=== PATIENT | female | born 1950 | race Two or more races ===

== ENCOUNTER 2022-02-08 14:35 | Outpatient (REF) | payer OTHER, SELFPAY ==
--- NOTE | ~2022-02-08 | US_ITS ---
EXAMINATION: US VENOUS ULTRASOUND WITH DOPPLER LOWER EXTREMITY, BILATERAL CLINICAL INFORMATION: Bilateral leg edema. COMPARISON: None TECHNIQUE: Ultrasound of the deep veins is performed from the hip to the calf with compression sonography and color and pulse Doppler assessment. Spectral analysis with color-flow imaging is performed. FINDINGS: RIGHT: There is normal venous compression and respiratory variation and augmented flow. The visualized common femoral vein, superficial femoral vein, profunda femoral vein, popliteal vein, and the trifurcation region shows no evidence of deep venous thrombosis. No right popliteal cyst. Reniform right inguinal lymph node with thin cortex measuring up to 3.2 cm in long axis. LEFT: There is normal venous compression and respiratory variation and augmented flow. The visualized common femoral vein, superficial femoral vein, profunda femoral vein, popliteal vein, and the trifurcation region shows no evidence of deep venous thrombosis. There is no significant popliteal fossa cyst. Reniform left inguinal lymph node with thin cortex measuring 2.8 cm in long axis. If the patient's symptoms persist, followup ultrasound in 5 days 7 days might be of value to exclude proximal propagation from a non-visualized calf vein. US/US venous duplex LE IMPRESSION: 1. No evidence for deep venous thrombosis in the visualized veins of bilateral lower extremities.
[2022-02-08 16:05] LABS: MANUAL DIFF FLAG NO
[2022-02-08 16:50] LABS: Basophils Absolute Auto 0.1 X10*3/uL (0.0-0.2); Basophils Percent Auto 0.6 % (0-2); Eosinophils Absolute Auto 0.1 X10*3/uL (0.0-0.4); Eosinophils Percent Auto 1.6 % (0-4); Hematocrit 42.3 % (37.0-47.0); Hemoglobin 14.2 g/dl (12.0-16.0); Imm Gran Abs Auto 0.02 X10*3/uL (0.00-0.03); Imm Gran Pct Auto 0.2 % (0.0-0.4); Lymphocytes Absolute Auto 2.5 X10*3/uL (1.2-4.9); Lymphocytes Percent Auto 30.5 % (20-40); Mean Corpuscular HGB Conc 33.6 g/dl (31.0-35.0); Mean Corpuscular Volume 86.5 fL (80.0-98.0); Mean Platelet Volume 9.4 fL (9.4-12.3); Monocytes Absolute Auto 0.6 X10*3/uL (0.1-1.2); Monocytes Percent Auto 6.8 % (2-11); Neutrophils Absolute Auto 4.9 x10*3/uL (2.0-8.3); Neutrophils Percent Auto 60.3 % (45-73); Platelet Count 371 X10*3/uL (160-400); Red Blood Count 4.89 X10*6/uL (4.20-5.50); Red Cell Distribution Width 13.4 % (11.0-16.0); White Blood Count 8.1 X10*3/uL (4.8-10.8)
[2022-02-08 17:19] LABS: Alanine Aminotransferase 14 U/L (0-31); Albumin Level 4.3 g/dL (3.5-5.0); Alkaline Phosphatase 124 U/L (39-117); Anion Gap 15 (12-20); Aspartate Amino Transferase 19 U/L (5-31); B Type Natriuretic Peptide 11 pg/mL (<100); Bilirubin Total 0.3 mg/dL (0.0-1.0); Blood Urea Nitrogen 12 mg/dL (9-16); Calcium 9.7 mg/dL (8.4-10.2); Carbon Dioxide 28 mmol/L (22-29); Chloride 104 mmol/L (96-108); Estimated Glomerular Filt Rate > 60; Glucose Random 88 mg/dL (60-115); Potassium 3.9 mmol/L (3.3-5.1); Sodium 143 mmol/L (135-145); Total Protein 7.3 g/dL (6.5-8.0)
[2022-02-08 17:38] LABS: TSH reflex Free T4 0.26 uIU/mL (0.32-4.0)
[2022-02-08 18:27] LABS: Free T4 (Free Thyroxine) 1.25 ng/dL (0.71-1.85)
== END 2022-02-08 14:36 | disposition home or self-care (01) ==
LOC: HO.US 14:35
PROVIDERS: PCP Internal Medicine Geriatric Medicine; Visit Provider Internal Medicine Geriatric Medicine
DX: R60.0 Localized edema (principal); E03.9 Hypothyroidism, unspecified; E11.9 Type 2 diabetes mellitus without complications; I10 Essential (primary) hypertension; Z72.0 Tobacco use
CPT/HCPCS: 36415; 80053; 83880; 84439; 84443; 85025; 93970

== ENCOUNTER 2022-03-08 12:07 | Outpatient (REF) | payer OTHER, SELFPAY ==
--- NOTE | ~2022-03-08 | XR_ITS ---
EXAMINATION: XR KNEE, RIGHT CLINICAL INFORMATION: Right knee pain COMPARISON: 08/03/2016 TECHNIQUE: Four views of the right knee. FINDINGS: Medial compartment narrowing and marginal osteophytes have slightly progressed. Mild patellofemoral and lateral compartment osteoarthritis. No joint effusion. Prominent patellar enthesopathy. XR/XR knee RT 4V IMPRESSION: Moderate medial and mild patellofemoral/lateral compartment osteoarthritis which has slightly progressed since 2017. Prominent patellar enthesopathy.
== END 2022-03-08 12:08 | disposition home or self-care (01) ==
LOC: HO.XRAY 12:07
PROVIDERS: Absent Provider Internal Medicine Geriatric Medicine; PCP Internal Medicine Geriatric Medicine; Visit Provider Internal Medicine
DX: M17.11 Unilateral primary osteoarthritis, right knee (principal)
CPT/HCPCS: 73564

== ENCOUNTER 2022-03-15 09:05 | Outpatient (REF) | payer OTHER, SELFPAY ==
--- NOTE | ~2022-03-15 | XR_ITS ---
EXAMINATION: XR KNEE AP STANDING CLINICAL INFORMATION: Pain COMPARISON: Right knee radiographs 03/08/2022 TECHNIQUE: AP bilateral standing view of the knees was obtained. FINDINGS: No definite acute fracture appreciated however limited single view limits evaluation. Moderate to advanced degenerative changes of the right knee involving the medial compartment where there is near complete loss of joint space and degenerative spurring. Moderate degenerative changes of the left knee with loss of joint space. XR/XR knee standing BI IMPRESSION: Moderate to advanced degenerative changes of the right knee involving the medial compartment where there is near complete loss of joint space and degenerative spurring. Moderate degenerative changes of the left knee with loss of joint space.
== END 2022-03-15 09:06 | disposition home or self-care (01) ==
LOC: HO.XRAY 09:05
PROVIDERS: Visit Provider Orthopaedic Surgery
DX: M25.561 Pain in right knee (principal)
CPT/HCPCS: 73565

== ENCOUNTER 2022-03-15 14:19 | Outpatient (REF) | payer OTHER, SELFPAY ==
[2022-03-15 15:59] LABS: Estimated Average Glucose 137 mg/dL; Hemoglobin A1c % 6.4 %
== END 2022-03-15 14:20 | disposition home or self-care (01) ==
LOC: HO.LAB 14:19
PROVIDERS: PCP Internal Medicine Geriatric Medicine; Visit Provider Orthopaedic Surgery
DX: Z01.812 Encounter for preprocedural laboratory examination (principal); M17.11 Unilateral primary osteoarthritis, right knee; E11.9 Type 2 diabetes mellitus without complications
CPT/HCPCS: 36415; 83036; 99212

== ENCOUNTER 2022-04-01 12:15 | Outpatient (REF) | payer OTHER, SELFPAY ==
[2022-04-01 12:28] LABS: MANUAL DIFF FLAG NO
[2022-04-01 12:51] LABS: Basophils Absolute Auto 0.1 X10*3/uL (0.0-0.2); Basophils Percent Auto 0.8 % (0-2); Eosinophils Absolute Auto 0.1 X10*3/uL (0.0-0.4); Eosinophils Percent Auto 1.3 % (0-4); Hematocrit 41.6 % (37.0-47.0); Hemoglobin 13.9 g/dl (12.0-16.0); Imm Gran Abs Auto 0.02 X10*3/uL (0.00-0.03); Imm Gran Pct Auto 0.3 % (0.0-0.4); Lymphocytes Absolute Auto 2.3 X10*3/uL (1.2-4.9); Lymphocytes Percent Auto 28.9 % (20-40); Mean Corpuscular HGB Conc 33.4 g/dl (31.0-35.0); Mean Corpuscular Hemoglobin 28.7 pg (27.0-33.0); Mean Platelet Volume 9.7 fL (9.4-12.3); Monocytes Absolute Auto 0.6 X10*3/uL (0.1-1.2); Monocytes Percent Auto 7.6 % (2-11); Neutrophils Absolute Auto 4.8 x10*3/uL (2.0-8.3); Neutrophils Percent Auto 61.1 % (45-73); Platelet Count 332 X10*3/uL (160-400); Red Blood Count 4.84 X10*6/uL (4.20-5.50); Red Cell Distribution Width 13.5 % (11.0-16.0); White Blood Count 7.9 X10*3/uL (4.8-10.8)
[2022-04-01 13:39] LABS: Erythrocyte Sedimentation Rate 18 MM/HR (0-20)
[2022-04-01 13:43] LABS: Alanine Aminotransferase 13 U/L (0-31); Albumin Level 4.2 g/dL (3.5-5.0); Alkaline Phosphatase 113 U/L (39-117); Anion Gap 18 (12-20); Aspartate Amino Transferase 19 U/L (5-31); Bilirubin Total 0.2 mg/dL (0.0-1.0); Blood Urea Nitrogen 14 mg/dL (9-16); C Reactive Protein 0.54 mg/dL (< or = 0.50); Calcium 9.4 mg/dL (8.4-10.2); Carbon Dioxide 23 mmol/L (22-29); Chloride 105 mmol/L (96-108); Estimated Glomerular Filt Rate > 60; Glucose Random 86 mg/dL (60-115); Potassium 4.5 mmol/L (3.3-5.1); Sodium 141 mmol/L (135-145); Total Protein 7.3 g/dL (6.5-8.0)
[2022-04-01 13:52] LABS: TSH reflex Free T4 1.33 uIU/mL (0.32-4.0)
== END 2022-04-01 12:16 | disposition home or self-care (01) ==
LOC: HO.LAB 12:15
PROVIDERS: Absent Provider Internal Medicine Geriatric Medicine; PCP Internal Medicine Geriatric Medicine; Visit Provider Family Medicine
DX: R51.9 Headache, unspecified (principal)
CPT/HCPCS: 36415; 80053; 84443; 85025; 85652; 86140

== ENCOUNTER 2022-05-26 06:11 | Inpatient (IN) | payer OTHER, SELFPAY ==
--- NOTE | 2022-04-28 13:16 | ECG_ITS ---
Test Reason : preop Blood Pressure : / mmHG Vent. Rate : 083 BPM Atrial Rate : 083 BPM P-R Int : 176 ms QRS Dur : 066 ms QT Int : 384 ms P-R-T Axes : 067 008 024 degrees QTc Int : 451 ms Normal sinus rhythm Nonspecific ST abnormality Lateral leads Abnormal ECG No previous ECGs available Referred By: Kemal Jason Electronically Signed By:KAREN MORROW MD
[2022-04-28 13:19] LABS: MANUAL DIFF FLAG NO
[2022-04-28 14:08] LABS: Basophils Percent Auto 0.4 % (0-2); Eosinophils Absolute Auto 0.2 X10*3/uL (0.0-0.4); Eosinophils Percent Auto 2.2 % (0-4); Hematocrit 41.3 % (37.0-47.0); Hemoglobin 14.1 g/dl (12.0-16.0); Imm Gran Abs Auto 0.03 X10*3/uL (0.00-0.03); Imm Gran Pct Auto 0.4 % (0.0-0.4); Lymphocytes Absolute Auto 2.2 X10*3/uL (1.2-4.9); Lymphocytes Percent Auto 32.7 % (20-40); Mean Corpuscular HGB Conc 34.1 g/dl (31.0-35.0); Mean Corpuscular Hemoglobin 29.2 pg (27.0-33.0); Mean Corpuscular Volume 85.5 fL (80.0-98.0); Mean Platelet Volume 9.4 fL (9.4-12.3); Monocytes Absolute Auto 0.4 X10*3/uL (0.1-1.2); Monocytes Percent Auto 6.1 % (2-11); Neutrophils Percent Auto 58.2 % (45-73); Platelet Count 403 X10*3/uL (160-400); Red Blood Count 4.83 X10*6/uL (4.20-5.50); Red Cell Distribution Width 13.6 % (11.0-16.0); White Blood Count 6.9 X10*3/uL (4.8-10.8)
[2022-04-28 14:29] LABS: Anion Gap 13 (12-20); Blood Urea Nitrogen 10 mg/dL (9-16); Calcium 9.2 mg/dL (8.4-10.2); Carbon Dioxide 29 mmol/L (22-29); Chloride 106 mmol/L (96-108); Estimated Glomerular Filt Rate > 60; Glucose Random 217 mg/dL (60-115); Potassium 3.8 mmol/L (3.3-5.1); Sodium 144 mmol/L (135-145)
[2022-05-10 11:59] VITALS: BP 155/67; PULSE 89; RESP 20; O2SAT 96; BMI 37.0
--- NOTE | 2022-05-10 12:21 | P.CONAN_ITS ---
Documented by User: Carolina Zavaleta NP 05/10/22 12:26 HPI - Anesthesia Eval Consult details Narrative: 71yo F for Right Knee Replacement Total PCP cleared [facility] Active Problems Active Problems: All Active Problems (Updated 05/10/22 @ 11:23 by Angelic Hanson RN) Osteoarthritis of right knee (Acute) Diabetes mellitus (Acute) Past Medical History Medical History Arthritis of knee, right Asthma Diabetes History of CVA (cerebrovascular accident) without residual deficits Hypertension Hypothyroidism LIANA (obstructive sleep apnea) Family History Family history of problems with anesthesia: No Surgical History Surgical History History of cholecystectomy Hx of hysterectomy History of Problems with Anesthesia: No Social History Social History (Updated 03/15/22 @ 13:07 by Paulina Lopez CMA) Are you a primary patient care technician to a significant other at home: No 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 If so, by whom?: No Are you DNR?: No Advance Directives: No Advance Directives Information Provided: Yes (Given to patient with PATs) Advance Directives on File: No Recently lost weight without trying: No Eating poorly because of decreased appetite: No Nutrition Risks: No Nutritional Risk Patient : No : No Narrative Narrative: No recent illness No CP/SOB within limits of pain Meds Allergies Allergy/AdvReac Type Severity Reaction Status Date / Time aspirin AdvReac Anxiety Verified 05/26/22 06:38 codeine AdvReac Anxiety Verified 05/26/22 06:38 bactrim Allergy Blister Uncoded 05/10/22 11:23 Home Medications Medication Instructions Recorded Confirmed Last Taken Type celecoxib 200 mg capsule 200 mg PO BID 03/15/22 05/07/22 05/26/22 05:25 History duloxetine 30 mg capsule,delayed 30 mg PO DAILY 03/15/22 05/07/22 05/26/22 05:25 History release glipizide 5 mg tablet 5 mg PO BID 03/15/22 05/07/22 05/26/22 05:25 History oxybutynin chloride 5 mg 5 mg PO DAILY 03/15/22 05/07/22 05/26/22 05:25 History tablet,extended release 24 hr albuterol sulfate 90 mcg/actuation 2 puff inhalation Q4-6H PRN 04/28/22 05/07/22 Unknown History aerosol inhaler (Ventolin HFA) Wheezing fluticasone propionate 50 1 spray intranasal DAILY 04/28/22 05/07/22 Unknown History mcg/actuation nasal spray,suspension levothyroxine 137 mcg tablet 137 mcg PO DAILY 04/28/22 05/07/22 05/26/22 05:25 History pantoprazole 40 mg tablet,delayed 40 mg PO DAILY 04/28/22 05/07/22 05/26/22 05:25 History release zolpidem 12.5 mg tablet,extended 12.5 mg PO BEDTIME PRN Sleep 04/28/22 05/07/22 Unknown History release,multiphase amitriptyline 10 mg tablet 1 tab PO BEDTIME 05/07/22 05/07/22 Unknown History atorvastatin 20 mg tablet 1 tab PO BEDTIME 05/07/22 05/07/22 Unknown History buspirone 5 mg tablet 1 tab PO BID 05/07/22 05/07/22 05/26/22 05:25 History sumatriptan succinate 25 mg tablet 1 tab PO QD-BID migraine 05/07/22 05/07/22 Unknown History amlodipine 10 mg tablet 1 tab PO DAILY 05/10/22 05/10/22 05/26/22 05:25 History aspirin 81 mg tablet 81 mg PO DAILY 05/26/22 05/26/22 05/12/22 History Exam Exam Date and Time: May 10, 2022 122 Height,Weight and Vital Signs: Height 5 ft 1 in Weight 88.904 kg Last Vital Signs Pulse 89 05/10/22 11:59 Resp 20 05/10/22 11:59 BP 155/67 H 05/10/22 11:59 Pulse Ox 96 05/10/22 11:59 O2 Del Method 05/10/22 11:59 Pertinent Lab Results Pertinent Lab Results: Laboratory Tests 04/28/22 04/28/22 13:18 13:18 WBC 6.9 RBC 4.83 Hgb 14.1 Hct 41.3 MCV 85.5 MCH 29.2 MCHC 34.1 RDW 13.6 Plt Count 403 H MPV 9.4 Immature Gran % (Auto) 0.4 Neut % (Auto) 58.2 Lymph % (Auto) 32.7 [place] % (Auto) 6.1 Eos % (Auto) 2.2 Baso % (Auto) 0.4 Lymph # (Auto) 2.2 [place] # (Auto) 0.4 Eos # (Auto) 0.2 Baso # (Auto) 0.0 Abs Immat Gran (auto) 0.03 Absolute Neuts (auto) 4.0 Absolute Nucleated RBC 0.000 Nucleated RBC % (auto) 0.0 Sodium 144 Potassium 3.8 Chloride 106 Carbon Dioxide 29 Anion Gap 13 BUN 10 Creatinine 0.70 Estim Creat Clear Calc TNP Estimated GFR > 60 Random Glucose 217 H Calcium 9.2 Laboratory Tests 03/15/22 14:39 Hemoglobin A1c % 6.4 Narrative Narrative: EKG 04/2022 Vent. Rate : 083 BPM ? ? Atrial Rate : 083 BPM ?? P-R Int : 176 ms? QRS Dur : 066 ms ? ? QT Int : 384 ms ? ? ? P-R-T Axes : 067 008 024 degrees ?? QTc Int : 451 ms ? Normal sinus rhythm Nonspecific ST abnormality Lateral leads Abnormal ECG ? No previous ECGs available Airway Mallampati Class: II TM Dist: >3cm Neck ROM: Full Heart: RRR Lungs: CTAB Assessment and Plan Assessment Anesthesia Assessment: Anesthesia Plan Discussed, Smoking Cess. Discussed and PAT Visit Final Anesthetic Review Family History of Problems with Anesthesia: No History of Problems with Anesthesia: No Documented by User: Lucas Mora MD 05/26/22 16:42 HPI - Anesthesia Eval Consult details Narrative: 71yo F for Right Knee Replacement Total loss of balance since the stroke PCP cleared [facility] Past Medical History Medical History Arthritis of knee, right Asthma Diabetes History of CVA (cerebrovascular accident) without residual deficits Hypertension Hypothyroidism LIANA (obstructive sleep apnea) Surgical History Surgical History History of cholecystectomy Hx of hysterectomy Social History Social History (Updated 03/15/22 @ 13:07 by Paulina Lopez CMA) Are you a primary patient care technician to a significant other at home: No 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 If so, by whom?: No Are you DNR?: No Advance Directives: No Advance Directives Information Provided: Yes (Given to patient with PATs) Advance Directives on File: No Recently lost weight without trying: No Eating poorly because of decreased appetite: No Nutrition Risks: No Nutritional Risk Patient : No : No Meds Allergies Allergy/AdvReac Type Severity Reaction Status Date / Time aspirin AdvReac Anxiety Verified 05/26/22 06:38 codeine AdvReac Anxiety Verified 05/26/22 06:38 bactrim Allergy Blister Uncoded 05/10/22 11:23 Home Medications Medication Instructions Recorded Confirmed Last Taken Type celecoxib 200 mg capsule 200 mg PO BID 03/15/22 05/07/22 05/26/22 05:25 History duloxetine 30 mg capsule,delayed 30 mg PO DAILY 03/15/22 05/07/22 05/26/22 05:25 History release glipizide 5 mg tablet 5 mg PO BID 03/15/22 05/07/22 05/26/22 05:25 History oxybutynin chloride 5 mg 5 mg PO DAILY 03/15/22 05/07/22 05/26/22 05:25 History tablet,extended release 24 hr albuterol sulfate 90 mcg/actuation 2 puff inhalation Q4-6H PRN 04/28/22 05/07/22 Unknown History aerosol inhaler (Ventolin HFA) Wheezing fluticasone propionate 50 1 spray intranasal DAILY 04/28/22 05/07/22 Unknown History mcg/actuation nasal spray,suspension levothyroxine 137 mcg tablet 137 mcg PO DAILY 04/28/22 05/07/22 05/26/22 05:25 History pantoprazole 40 mg tablet,delayed 40 mg PO DAILY 04/28/22 05/07/22 05/26/22 05:25 History release zolpidem 12.5 mg tablet,extended 12.5 mg PO BEDTIME PRN Sleep 04/28/22 05/07/22 Unknown History release,multiphase amitriptyline 10 mg tablet 1 tab PO BEDTIME 05/07/22 05/07/22 Unknown History atorvastatin 20 mg tablet 1 tab PO BEDTIME 05/07/22 05/07/22 Unknown History buspirone 5 mg tablet 1 tab PO BID 05/07/22 05/07/22 05/26/22 05:25 History sumatriptan succinate 25 mg tablet 1 tab PO QD-BID migraine 05/07/22 05/07/22 Unknown History amlodipine 10 mg tablet 1 tab PO DAILY 05/10/22 05/10/22 05/26/22 05:25 History aspirin 81 mg tablet 81 mg PO DAILY 05/26/22 05/26/22 05/12/22 History Exam Airway Loose/Missing/Broken Teeth: Yes Assessment and Plan Assessment Anesthesia Assessment: Chart Reviewed Final Anesthetic Review NPO: Yes ASA Class: III Final Preanesthetic Review: Meds/Allgs Chart Reviewed, Consent Obtained/Reviewed and Anes Risks/Benef Reviewed Patient Risk: High Procedure Risk: Intermediate Anesthetic Plan Anesthetic Plan: Regional Block Disposition: Standard PACU and Inp. Admit - Standard Bed
[2022-05-10 15:06] LABS: MRSA Nasal PCR NEGATIVE (Negative); SA Nasal PCR POSITIVE (Negative)
[2022-05-26] VITALS (15 sets, daily range): BP systolic 108–196; BP diastolic 48–82; PULSE 63–92; RESP 15–18; TEMP 36.4–37.1; O2SAT 93–99
--- NOTE | ~2022-05-26 | XR_ITS ---
EXAMINATION: XR KNEE, RIGHT CLINICAL INFORMATION: Status post right total knee arthroplasty. COMPARISON: None TECHNIQUE: Four views of the right knee. FINDINGS: The patient is status post right knee arthroplasty showing good anatomic alignment and no evidence for hardware malfunction. Mild intra-articular air is noted. Multiple surgical clips overlie the anterior soft tissues. XR/XR knee RT 2V IMPRESSION: Postsurgical changes. No hardware abnormality.
[2022-05-26 06:45] LABS: COVID-19 Test Negative (Negative); IDNOW Serial# BCCEAD1C
[2022-05-26 06:47] LABS: Glucose, Whole Blood 138 mg/dL (60-115)
[2022-05-26 06:54] LABS: Hematocrit 38.6 % (37.0-47.0); Hemoglobin 12.9 g/dl (12.0-16.0)
[2022-05-26] MEDS: Lactated Ringers 1,000 ML 100 ML IVCONT ×2 (07:06→12:15)
--- NOTE | 2022-05-26 07:56 | MHC.SHP ---
Pre-Procedural Eval Section A Date of Service: 05/26/22 The patient is an INPATIENT: No Changes since office visit: Yes Patient answered all questions; No Cold of Flu in the past 2 weeks, No New Medical Problems and No Changes in Medication The History & Physical has been completed within 30 days and I have reviewed it.: Yes Section B Chief Complaint: RT TKA Allergies: Allergies Allergy/AdvReac Type Severity Reaction Status Date / Time aspirin AdvReac Anxiety Verified 05/26/22 06:38 codeine AdvReac Anxiety Verified 05/26/22 06:38 bactrim Allergy Blister Uncoded 05/10/22 11:23 Plan I have reviewed the history and physical and performed a pertinent physical examination on my patient. No changes have occurred unless specified.
[2022-05-26] MEDS: ceFAZolin Sodium/Dextrose,Iso 2 GM/50 ML PIGGYBACK IV ×2 (08:00→14:46)
--- NOTE | 2022-05-26 09:18 | P.BOP_ITS ---
Brief Operative Note Date of Service: 05/26/22 Pre-op diagnosis: Right knee OA Post-op diagnosis: same Procedure: Right TKA Implants: [place] Triathlon press fit posterior stabilized 07/22/10 Surgeon: Kemal Jason MD Anesthesia: regional and spinal Was an Immigration Investigator used for this Procedure?: Yes Immigration Investigator: Grace Machado Estimated blood loss (mL): 150 IV fluids (mL): 1,000 Pathology: other Condition: stable Disposition: PACU
--- NOTE | 2022-05-26 09:21 | P.OP_ITS ---
Operative Note Operative Note Date of Service: 05/26/22 Narrative: Date of Service: 05/26/22 Pre-op diagnosis: Right knee OA Post-op diagnosis: same Procedure: Right TKA Implants: [place] Triathlon press fit posterior stabilized 07/22/10 Surgeon: Kemal Jason MD Anesthesia: regional and spinal Was an Agent Licensing Clerk used for this Procedure?: Yes Agent Licensing Clerk: Grace Machado Estimated blood loss (mL): 150 IV fluids (mL): 1,000 Pathology: other Condition: stable Disposition: PACU Procedure in detail: The patient was brought to the operating room and prepped and draped in standard sterile fashion. A time-out was called to identify proper site proper procedure proper surgeon and IV antibiotics were administered. 1 g of IV tranexamic acid was administered. I began by making a midline incision to the retinaculum and performed a medial parapatellar arthrotomy. The patella was translated laterally and the knee was flexed up. The medial compartment was eburnated. I performed a small medial peel and resected the infrapatellar fat pad. [place]'s line was then used to drill my intramedullary femoral guide and my distal femur cut of 10mm was made in 5 degrees of valgus while protecting the soft tissues. I then measured a # 2 femur and placed my cutting guide and made my anterior posterior and chamfer cuts in # deg ER protecting the soft tissues at all times. I then made my box but removing the PCL. Once I was satisfied with my cuts I turned my attention to the tibia. I removed the meniscus medially and laterally and , using an external cutting guide, in line with the tibial crest and the third ray, I made my distal tibial cut in 0 deg slope of while protecting the posterior soft tissues at all times. An extension block was used to confirm appropriate amount of bony resection. I then sized a #2 tibia and once I was satisfied that there was complete tibial coverage I placed my trial and with the trial femur in place took the knee through range of motion. I was satisfied with the extension and flexion as well as the stability at 0, 30 and 90 degrees. I then turned my attention to the patella where I removed 1 cm from the undersurface of the patella and then trialed a 29a patellar button. Again the knee was taken through range of motion I was satisfied with the tracking. I then returned to the femur and drilled my femoral lug holes and prepared the tibia. A femoral bone plug was placed and the knee was irrigated copiously. I then press fit the patella, tibia and femur in standard fashion. I trialed different inserts until I selected a #11mm insert. The final insert was placed and a 3 minutes iodine soak with local TXA was performed. The knee was then closed with a running Quill suture, a 3 0 Vicryl and jayant on the skin. Patient was then placed in sterile dressing and brought to recovery room in stable condition there were no known complications.
[2022-05-26] MEDS: Acetaminophen 1,000 MG/100 ML PIGGYBACK 400 MG IV (12:16)
[2022-05-26] MEDS: HYDROmorphone HCl 0.5 MG/0.5 ML SYRINGE 0.25 MG IVPUSH ×3 (12:56→21:18)
--- NOTE | 2022-05-26 14:33 | PC.NURSE ---
voided on bed lamar 250ml. pale yellow slight odor. no longer has pain. 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
[2022-05-26] MEDS: oxyCODONE HCl Immed Release 5 MG TABLET PO ×2 (15:28→19:39)
[2022-05-26 15:55] LABS: Glucose, Whole Blood 154 mg/dL (60-115)
[2022-05-26] MEDS: SUMAtriptan succinate 25 MG TABLET PO (16:38)
[2022-05-26] MEDS: Losartan Potassium 50 MG TABLET PO (18:38)
[2022-05-26] MEDS: Atorvastatin Calcium 20 MG TABLET PO (19:39)
[2022-05-26] MEDS: glipiZIDE 5 MG TABLET PO (19:39)
[2022-05-26] MEDS: Acetaminophen 325 MG TABLET 650 MG PO (19:39)
[2022-05-26] MEDS: busPIRone HCl 5 MG TABLET PO (19:40)
[2022-05-26] MEDS: oxyCODONE HCl ER 10 MG TAB.ER.12H PO (19:40)
[2022-05-26] MEDS: Amitriptyline HCl 10 MG TABLET PO (19:40)
[2022-05-26] MEDS: Docusate Sodium 100 MG CAPSULE PO (19:40)
[2022-05-26] MEDS: Celecoxib 200 MG CAPSULE PO (19:40)
[2022-05-26] MEDS: Zolpidem Tartrate 5 MG TABLET PO (21:23)
[2022-05-26] MEDS: 0.9 % Sodium Chloride Flush 3 ML SYRINGE IVFLUSH (23:21)
[2022-05-27 04:00] VITALS: BP 146/63; PULSE 85; RESP 18; TEMP 36.8; O2SAT 92
[2022-05-27] MEDS: Levothyroxine Sodium 25 MCG TABLET PO (05:45)
[2022-05-27] MEDS: Omeprazole 20 MG CAPSULE.DR PO (05:45)
[2022-05-27] MEDS: Levothyroxine Sodium 112 MCG TABLET PO (05:45)
[2022-05-27 05:46] LABS: MANUAL DIFF FLAG NO
[2022-05-27] MEDS: Acetaminophen 325 MG TABLET 650 MG PO ×2 (05:46→20:48)
[2022-05-27] MEDS: oxyCODONE HCl Immed Release 5 MG TABLET PO ×2 (05:46→10:02)
[2022-05-27 05:57] LABS: Basophils Percent Auto 0.3 % (0-2); Eosinophils Percent Auto 0.2 % (0-4); Hematocrit 36.5 % (37.0-47.0); Hemoglobin 12.4 g/dl (12.0-16.0); Imm Gran Abs Auto 0.04 X10*3/uL (0.00-0.03); Imm Gran Pct Auto 0.4 % (0.0-0.4); Lymphocytes Absolute Auto 1.4 X10*3/uL (1.2-4.9); Lymphocytes Percent Auto 14.1 % (20-40); Mean Corpuscular Hemoglobin 28.6 pg (27.0-33.0); Mean Corpuscular Volume 84.1 fL (80.0-98.0); Mean Platelet Volume 9.5 fL (9.4-12.3); Monocytes Absolute Auto 0.8 X10*3/uL (0.1-1.2); Monocytes Percent Auto 8.6 % (2-11); Neutrophils Absolute Auto 7.5 x10*3/uL (2.0-8.3); Neutrophils Percent Auto 76.4 % (45-73); Platelet Count 359 X10*3/uL (160-400); Red Blood Count 4.34 X10*6/uL (4.20-5.50); Red Cell Distribution Width 13.2 % (11.0-16.0); White Blood Count 9.8 X10*3/uL (4.8-10.8)
[2022-05-27 06:07] LABS: Anion Gap 12 (12-20); Blood Urea Nitrogen 11 mg/dL (9-16); Calcium 8.3 mg/dL (8.4-10.2); Carbon Dioxide 27 mmol/L (22-29); Chloride 105 mmol/L (96-108); Creatinine Clr Calc Pharmacy 67.2; Estimated Glomerular Filt Rate > 60; Glucose Fasting 154 mg/dL (60-99); Potassium 3.8 mmol/L (3.3-5.1); Sodium 140 mmol/L (135-145)
--- NOTE | 2022-05-27 06:35 | PC.NURSE ---
pt did not void overnight, got pt up to bedside commode around 0545 and pt still unable to void, bladder scanned pt at 0600 for 430 ml. Straight cath'd at 0615 for 400 ml.
[2022-05-27 07:43] VITALS: BP 144/64; PULSE 81; RESP 16; TEMP 37.3; O2SAT 94
[2022-05-27] MEDS: DULoxetine HCl 30 MG CAPSULE.DR PO (08:09)
[2022-05-27] MEDS: amLODIPine Besylate 10 MG TABLET PO (08:09)
[2022-05-27] MEDS: oxyCODONE HCl ER 10 MG TAB.ER.12H PO ×2 (08:09→20:48)
[2022-05-27] MEDS: Celecoxib 200 MG CAPSULE PO ×2 (08:09→20:48)
[2022-05-27] MEDS: busPIRone HCl 5 MG TABLET PO ×2 (08:09→20:48)
[2022-05-27] MEDS: glipiZIDE 5 MG TABLET PO (08:09)
[2022-05-27] MEDS: Docusate Sodium 100 MG CAPSULE PO ×2 (08:09→20:49)
[2022-05-27] MEDS: Losartan Potassium 50 MG TABLET PO (08:09)
[2022-05-27] MEDS: SUMAtriptan succinate 25 MG TABLET PO (08:10)
[2022-05-27] MEDS: 0.9 % Sodium Chloride Flush 3 ML SYRINGE IVFLUSH ×3 (08:13→20:49)
[2022-05-27] MEDS: HYDROmorphone HCl 0.5 MG/0.5 ML SYRINGE 0.25 MG IVPUSH ×3 (08:48→23:46)
[2022-05-27] MEDS: Enoxaparin Sodium 40 MG/0.4 ML SYRINGE SUBCUT (09:31)
--- NOTE | 2022-05-27 09:33 | MHC.CM.PN ---
Addendum entered by Lyndsey Gama 05/27/22 12:37: PT IS RECOMMENDING STR. CM MET WITH PT WHO ADAMANTLY DECLINES TO GO TO STR. 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 LIVES ALONE IN AN APARTMENT, NO PREVIOUS SERVICES. USES A WHEELED WALKER WITH SEAT FOR MOBILITY AND HAS GRAB BARS IN [place]. NO COVID VAX. NO HCP BUT WILLING TO COMPLETE ONE WHILE HERE. PCP IS DR. ELIZABETH AT [facility]. DP: HOME WITH SERVICES, CHOOSES [facility] . REFERRAL SENT. FRIEND WILL TRANSPORT HOME.
--- NOTE | 2022-05-27 11:12 | PM.PNORT ---
Subjective Subjective Date of Service: 05/27/22 Interval history: POD1 s/p RTKA. Patient reports that she is having quite a lot of pain. No overnight events. No additional complaints. Physical Exam Vital Signs: Vital Signs: Last Vital Signs Temp 99.1 F 05/27/22 07:43 Pulse 81 05/27/22 07:43 Resp 16 05/27/22 07:43 BP 144/64 H 05/27/22 07:43 Pulse Ox 94 05/27/22 07:43 O2 Del Method 05/27/22 07:43 BMI result Body Mass Index 37.0 Const: General: cooperative, healthy appearing and no acute distress Resp: Effort & Inspection: normal respiratory effort and able to speak in complete sentences Cardio: Rate: regular rate Peripheral pulses: Peripheral pulses 2+ throughout GI: Palpation (GI): Soft to palpation Skin: Lesions: no lesions Rashes: no rashes Extrem: Other: Right knee normal to inspection. Aquacel is c/d/i. NVI. Procedures Date of Service Date of Service: 05/27/22 Progress Note: A&P Assessment and plan (1) Status post total knee replacement, right: Status: Acute Assessment and Plan: Continue pain mgmnt Begin Lovenox for dvt ppx begin PT for RTKA Dispo planning-Pending PT eval, pain mgmnt - adjusted meds accordingly Time Spent With Patient Time: Total time spent is greater than 50% in coordination of care (as documented) at patient's floor/unit and/or counseling patient: Quality Stroke Does the patient have a stroke diagnosis?: No VTE Prior VTE?: No VTE Risk Level:: Medical - moderate - high VTE Device Contraindication: N/A - Device Ordered VTE Drug Contraindication: N/A - Med Ordered
[2022-05-27 11:13] VITALS: BP 142/62; PULSE 75; RESP 17; TEMP 37.3; O2SAT 95
--- NOTE | 2022-05-27 13:12 | HO.PM.IMCN ---
History of Present Illness Data of Consult Service Date: 05/27/22 Primary Care Provider: Darian Brar MD [facility] Reason for consult: Medical managemet Pt is a 71-year-old female with a PMH significant for diabetes mellitus non insulin dependent, HTN, HLD, hypothyroidism, osteoporosis, and migraines who was hospitalized S/P for revision of a total right knee arthroplasty. Patient has been up and around walking earlier today, however has been less active in complaining of pain in her right knee and upper thigh as the nerve block is worn off. Her oxy has been increased to 10 mg, though she has yet to receive her 1st dose. Patient otherwise feeling well and has no other acute complaints. Review of Systems Review of Systems: Pain in right knee and right thigh No chest pain/pressure No shortness of breath No abdominal pain Yes all other systems are reviewed and are negative [facility] Medical History Arthritis of knee, right Asthma Diabetes History of CVA (cerebrovascular accident) without residual deficits Hypertension Hypothyroidism LIANA (obstructive sleep apnea) Surgical History History of cholecystectomy Hx of hysterectomy Social History Are you a primary child care assistant to a significant other at home: No Do you presently have visiting nurse or other home services: Yes ([employer] 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 If so, by whom?: No Are you DNR?: No Advance Directives: No Advance Directives Information Provided: Yes (Given to patient with PATs) Advance Directives on File: No Recently lost weight without trying: No Eating poorly because of decreased appetite: No Nutrition Risks: No Nutritional Risk Patient : No : No service: No Current occupational status: disabled Meds Allergies Allergy/AdvReac Type Severity Reaction Status Date / Time aspirin AdvReac Anxiety Verified 05/26/22 06:38 codeine AdvReac Anxiety Verified 05/26/22 06:38 bactrim Allergy Blister Uncoded 05/10/22 11:23 Active Medications: Current Medications Acetaminophen (Acetaminophen 325 Mg Tablet) 650 mg PO Q6H PRN PRN Reason: Pain, Mild (Pain Scale 1-3) Last Admin: 05/27/22 05:46 Dose: 650 mg Albuterol Sulfate (Albuterol Sulfate (0.083%) 2.5 Mg/3 Ml Vial.Neb) 2.5 mg INHALE ONCE PRN PRN Reason: Shortness of Breath/Wheezing Albuterol Sulfate (Albuterol Sulfate 90 Mcg 8 Gm Inhaler) 2 puff INHALE Q4H PRN PRN Reason: Wheezing Amitriptyline HCl (Amitriptyline Hcl 10 Mg Tablet) 10 mg PO BEDTIME COUNT INCLUDES THE [facility] Last Admin: 05/26/22 19:40 Dose: 10 mg Amlodipine Besylate (Amlodipine Besylate 10 Mg Tablet) 10 mg PO DAILY COUNT INCLUDES THE [facility]; Protocol Last Admin: 05/27/22 08:09 Dose: 10 mg Atorvastatin Calcium (Atorvastatin Calcium 20 Mg Tablet) 20 mg PO BEDTIME COUNT INCLUDES THE [facility] Last Admin: 05/26/22 19:39 Dose: 20 mg Buspirone HCl (Buspirone Hcl 5 Mg Tablet) 5 mg PO BID COUNT INCLUDES THE [facility] Last Admin: 05/27/22 08:09 Dose: 5 mg Celecoxib (Celecoxib 200 Mg Capsule) 200 mg PO BID COUNT INCLUDES THE [facility] Last Admin: 05/27/22 08:09 Dose: 200 mg Docusate Sodium (Docusate Sodium 100 Mg Capsule) 100 mg PO BID COUNT INCLUDES THE [facility] Last Admin: 05/27/22 08:09 Dose: 100 mg Duloxetine HCl (Duloxetine Hcl 30 Mg Capsule.Dr) 30 mg PO DAILY COUNT INCLUDES THE [facility] Last Admin: 05/27/22 08:09 Dose: 30 mg Enoxaparin Sodium (Enoxaparin Sodium 40 Mg/0.4 Ml Syringe) 40 mg SUBCUT Q24H COUNT INCLUDES THE [facility] Last Admin: 05/27/22 09:31 Dose: 40 mg Fluticasone Propionate (Fluticasone Propionate Nasal 16 Gm [place]) 1 spray NOSTRIL-B DAILY COUNT INCLUDES THE [facility] Last Admin: 05/27/22 09:27 Dose: Not Given Glipizide (Glipizide 5 Mg Tablet) 5 mg PO BID COUNT INCLUDES THE [facility] Last Admin: 05/27/22 08:09 Dose: 5 mg Hydromorphone HCl (Hydromorphone Hcl 0.5 Mg/0.5 Ml Syringe) 0.25 mg IVPUSH Q4H PRN; Protocol PRN Reason: Pain, Severe (Pain Scale 7-10) Last Admin: 05/27/22 08:48 Dose: 0.25 mg Cefazolin Sodium/Dextrose (Ancef) 2 gm in 50 mls @ 100 mls/hr IV POSTOP COUNT INCLUDES THE [facility] Last Infusion: 05/26/22 15:35 Dose: Infused Levothyroxine Sodium (Levothyroxine Sodium 112 Mcg Tablet) 112 mcg PO DAILY@0600 COUNT INCLUDES THE [facility] Last Admin: 05/27/22 05:45 Dose: 112 mcg Levothyroxine Sodium (Levothyroxine Sodium 25 Mcg Tablet) 25 mcg PO DAILY@0600 COUNT INCLUDES THE [facility] Last Admin: 05/27/22 05:45 Dose: 25 mcg Losartan Potassium (Losartan Potassium 50 Mg Tablet) 50 mg PO DAILY COUNT INCLUDES THE [facility]; Protocol Last Admin: 05/27/22 08:09 Dose: 50 mg Omeprazole (Omeprazole 20 Mg Capsule.Dr) 20 mg PO DAILY@0630 COUNT INCLUDES THE [facility] Last Admin: 05/27/22 05:45 Dose: 20 mg Oxybutynin Chloride (Oxybutynin Chloride Er 5 Mg Tab.Er.24) 5 mg PO DAILY COUNT INCLUDES THE [facility] Last Admin: 05/27/22 08:09 Dose: 5 mg Oxycodone HCl (Oxycodone Hcl Er 10 Mg Tab.Er.12h) 10 mg PO BID COUNT INCLUDES THE [facility] Last Admin: 05/27/22 08:09 Dose: 10 mg Oxycodone HCl (Oxycodone Hcl Immed Release 5 Mg Tablet) 10 mg PO Q4H PRN PRN Reason: Pain, Moderate (Pain Scale 4-6 Sodium Chloride (0.9 % Sodium Chloride Flush 3 Ml Syringe) 3 ml IVFLUSH QSHIFT COUNT INCLUDES THE [facility] Last Admin: 05/27/22 08:13 Dose: 3 ml Sumatriptan Succinate (Sumatriptan Succinate 25 Mg Tablet) 25 mg PO DAILY MRX1 COUNT INCLUDES THE [facility] Last Admin: 05/27/22 08:14 Dose: Not Given Zolpidem Tartrate (Zolpidem Tartrate 5 Mg Tablet) 5 mg PO BEDTIME PRN PRN Reason: Sleep Last Admin: 05/26/22 21:23 Dose: 5 mg Home Medications Medication Instructions Recorded Confirmed Last Taken Type celecoxib 200 mg capsule 200 mg PO BID 03/15/22 05/07/22 05/26/22 05:25 History duloxetine 30 mg capsule,delayed 30 mg PO DAILY 03/15/22 05/07/22 05/26/22 05:25 History release glipizide 5 mg tablet 5 mg PO BID 03/15/22 05/07/22 05/26/22 05:25 History oxybutynin chloride 5 mg 5 mg PO DAILY 03/15/22 05/07/22 05/26/22 05:25 History tablet,extended release 24 hr albuterol sulfate 90 mcg/actuation 2 puff inhalation Q4-6H PRN 04/28/22 05/07/22 Unknown History aerosol inhaler (Ventolin HFA) Wheezing fluticasone propionate 50 1 spray intranasal DAILY 04/28/22 05/07/22 Unknown History mcg/actuation nasal spray,suspension levothyroxine 137 mcg tablet 137 mcg PO DAILY 04/28/22 05/07/22 05/26/22 05:25 History pantoprazole 40 mg tablet,delayed 40 mg PO DAILY 04/28/22 05/07/22 05/26/22 05:25 History release zolpidem 12.5 mg tablet,extended 12.5 mg PO BEDTIME PRN Sleep 04/28/22 05/07/22 Unknown History release,multiphase amitriptyline 10 mg tablet 1 tab PO BEDTIME 05/07/22 05/07/22 Unknown History atorvastatin 20 mg tablet 1 tab PO BEDTIME 05/07/22 05/07/22 Unknown History buspirone 5 mg tablet 1 tab PO BID 05/07/22 05/07/22 05/26/22 05:25 History sumatriptan succinate 25 mg tablet 1 tab PO QD-BID migraine 05/07/22 05/07/22 Unknown History amlodipine 10 mg tablet 1 tab PO DAILY 05/10/22 05/10/22 05/26/22 05:25 History aspirin 81 mg tablet 81 mg PO DAILY 05/26/22 05/26/22 05/12/22 History Physical Exam Vital Signs and Narrative: Vital Signs: Last Vital Signs Temp 99.2 F 05/27/22 11:13 Pulse 75 05/27/22 11:13 Resp 17 05/27/22 11:13 BP 142/62 H 05/27/22 11:13 Pulse Ox 95 05/27/22 11:13 O2 Del Method 05/27/22 11:13 BMI result Body Mass Index 37.0 General: AOx3, no acute distress Resp: CTA bilaterally CVS: S1, S2, RRR GI: +BS, NT, no distention Skin: No rash Neuro: Motor grossly intact Psych: Appropriate affect Results Labs CBC and Chem 7: 05/27/22 05:07 05/27/22 05:07 Labs: Laboratory Results - last 24 hr 05/26/22 05/27/22 05/27/22 15:52 05:07 05:07 MCV 84.1 MCH 28.6 MCHC 34.0 RDW 13.2 Plt Count 359 MPV 9.5 Immature Gran % (Auto) 0.4 Neut % (Auto) 76.4 H Lymph % (Auto) 14.1 L [place] % (Auto) 8.6 Eos % (Auto) 0.2 Baso % (Auto) 0.3 Lymph # (Auto) 1.4 [place] # (Auto) 0.8 Eos # (Auto) 0.0 Baso # (Auto) 0.0 Abs Immat Gran (auto) 0.04 H Absolute Neuts (auto) 7.5 Absolute Nucleated RBC 0.000 Nucleated RBC % (auto) 0.0 Anion Gap 12 Estim Creat Clear Calc 67.2 Estimated GFR > 60 POC Glucose 154 H Fasting Glucose 154 H Calcium 8.3 L D Assessment and Plan (1) Status post total knee replacement, right: Status: Acute (2) Osteoarthritis of right knee: Status: Acute (3) Diabetes mellitus: Status: Acute Plan Pt is a 71-year-old female with a PMH significant for diabetes mellitus non insulin dependent, HTN, HLD, hypothyroidism, osteoporosis, and migraines who was hospitalized S/P for revision of a total right knee arthroplasty. Pt complaining of pain in right knee and thigh, but no other acute concerns. Consult for medical management. # s/p RTKA -- as per surgical team management -- pt complains of right knee and upper thigh pain; oxy had been increased to 10mg # non-insulin dependent diabetes mellitus -- hold glipizide -- SSI # HTN -- BP coming down, was 189/69 yesterday, today 142/62 -- continue home meds # HLD -- continue home meds # hypothyroidism -- continue home meds # history of migraines -- continue home med prophylaxis # anxiety/depression -- continue home meds # asthma -- continue home meds Thank you for allowing me to participate in the care of this patient. Please contact me with any additional questions.
--- NOTE | 2022-05-27 14:13 | HO.POSTANES ---
Post Anesthesia Evaluation Post Anesthesia Evaluation Vital Signs: Vital Signs Temp Pulse Resp BP Pulse Ox O2 Del Method 05/27/22 11:13 99.2 F 75 17 142/62 H 95 Room Air 05/27/22 07:43 99.1 F 81 16 144/64 H 94 Room Air 05/27/22 04:00 98.3 F 85 18 146/63 H 92 Room Air Anesthesia: Spinal and Nerve Block Mental Status: Awake Pain Control: Satisfactory (difficult to control) Nausea/Vomiting: None Hydration: Adequate Anesthesia-Related Issues: No Anes. Related Issues
[2022-05-27 15:10] VITALS: BP 109/56; PULSE 81; RESP 18; TEMP 36.7; O2SAT 91
[2022-05-27] MEDS: oxyCODONE HCl Immed Release 5 MG TABLET 10 MG PO ×2 (16:43→20:48)
[2022-05-27] MEDS: Insulin Lispro 100 UNIT/ML 3 ML VIAL SUBCUT (16:47)
[2022-05-27 16:48] LABS: Glucose, Whole Blood 166 mg/dL (60-115)
--- NOTE | 2022-05-27 17:28 | PC.NURSE ---
Pt bladder scanned for 203mls at 1730 . Pt states she does not have to void at this time .
[2022-05-27 19:11] VITALS: BP 150/71; PULSE 79; RESP 17; TEMP 37.5; O2SAT 98
[2022-05-27 20:03] LABS: Glucose, Whole Blood 127 mg/dL (60-115)
[2022-05-27] MEDS: Zolpidem Tartrate 5 MG TABLET PO (20:48)
[2022-05-27] MEDS: Amitriptyline HCl 10 MG TABLET PO (20:48)
[2022-05-27] MEDS: Atorvastatin Calcium 20 MG TABLET PO (20:48)
[2022-05-27 23:27] VITALS: BP 135/62; PULSE 81; RESP 18; TEMP 36.9; O2SAT 97
[2022-05-28 03:27] VITALS: BP 122/60; PULSE 84; RESP 18; TEMP 36.9; O2SAT 98
[2022-05-28] MEDS: oxyCODONE HCl Immed Release 5 MG TABLET 10 MG PO (05:34)
[2022-05-28] MEDS: Omeprazole 20 MG CAPSULE.DR PO (05:34)
[2022-05-28] MEDS: Acetaminophen 325 MG TABLET 650 MG PO (05:34)
[2022-05-28] MEDS: Levothyroxine Sodium 112 MCG TABLET PO (05:34)
[2022-05-28] MEDS: Levothyroxine Sodium 25 MCG TABLET PO (05:34)
[2022-05-28 05:55] LABS: MANUAL DIFF FLAG NO
[2022-05-28 05:59] LABS: Basophils Percent Auto 0.2 % (0-2); Eosinophils Absolute Auto 0.2 X10*3/uL (0.0-0.4); Eosinophils Percent Auto 1.7 % (0-4); Hematocrit 32.7 % (37.0-47.0); Hemoglobin 10.8 g/dl (12.0-16.0); Imm Gran Abs Auto 0.03 X10*3/uL (0.00-0.03); Imm Gran Pct Auto 0.3 % (0.0-0.4); Lymphocytes Absolute Auto 1.4 X10*3/uL (1.2-4.9); Lymphocytes Percent Auto 14.7 % (20-40); Mean Corpuscular Hemoglobin 28.7 pg (27.0-33.0); Mean Platelet Volume 9.8 fL (9.4-12.3); Monocytes Absolute Auto 0.9 X10*3/uL (0.1-1.2); Monocytes Percent Auto 9.5 % (2-11); Neutrophils Absolute Auto 7.2 x10*3/uL (2.0-8.3); Neutrophils Percent Auto 73.6 % (45-73); Platelet Count 306 X10*3/uL (160-400); Red Blood Count 3.76 X10*6/uL (4.20-5.50); Red Cell Distribution Width 13.6 % (11.0-16.0); White Blood Count 9.8 X10*3/uL (4.8-10.8)
[2022-05-28 06:29] LABS: Anion Gap 11 (12-20); Blood Urea Nitrogen 14 mg/dL (9-16); Calcium 8.1 mg/dL (8.4-10.2); Carbon Dioxide 29 mmol/L (22-29); Chloride 103 mmol/L (96-108); Creatinine Clr Calc Pharmacy 68.9; Estimated Glomerular Filt Rate > 60; Glucose Fasting 146 mg/dL (60-99); Potassium 3.8 mmol/L (3.3-5.1); Sodium 139 mmol/L (135-145)
[2022-05-28 07:52] LABS: Glucose, Whole Blood 169 mg/dL (60-115)
--- NOTE | 2022-05-28 07:56 | P.DS_ITS ---
DS: Providers Provider Date of Service: 05/28/22 Date of admission: 05/26/22 06:11 Primary care physician: Darian Brar MD Consults: 05/26/22 14:57 Consult to Hospitalist Routine Consulting Provider: Hospitalist Reason For Exam: s/p RTKA DS: Diagnosis Discharge Diagnosis (1) Status post total knee replacement, right: Status: Acute (2) Osteoarthritis of right knee: Status: Acute (3) Diabetes mellitus: Status: Acute DS: Summary Hospital Course Hospital Course: The patient underwent a successful right total knee arthroplasty, they were transferred to PACU and then to the floor to recover. During their stay, their vitals were stable, afebrile at 98.5. Labs were unremarkable, H/H 10.8/32.7. POD 1 they were started on Lovenox for DVT ppx, they also received Physical Therapy services twice a day. Prior to discharge, their dressing was changed, incision clean dry and intact, new Aquacel dressing applied and the plan was to be discharged home with VNA services. Time Spent with Patient Time attestation: Total time spent providing and/or coordinating discharge services: Discharge coordination time: Less than 30 minutes Quality: Safe Use of Opioids Does Pt have an Active Cancer Diagnosis on the Problem List?: No Quality: Stroke Does the patient have a stroke diagnosis?: No Physical Exam Vital Signs: Vital Signs: Last Vital Signs Temp 98.5 F 05/28/22 03:27 Pulse 84 05/28/22 03:27 Resp 18 05/28/22 03:27 BP 122/60 05/28/22 03:27 Pulse Ox 98 05/28/22 03:27 O2 Del Method 05/28/22 03:27 O2 Flow Rate 2 05/28/22 03:27 BMI result Body Mass Index 37.0 Const: General: cooperative, healthy appearing and no acute distress Resp: Effort & Inspection: normal respiratory effort and able to speak in complete sentences Cardio: Rate: regular rate Peripheral pulses: Peripheral pulses 2+ throughout GI: Palpation (GI): Soft to palpation Skin: Lesions: no lesions Rashes: no rashes Extrem: Other: Right knee Aquacel is c/d/i. Able to dorsiflex and plantarflex. NVI. DS: Data Data Completed and Pending Completed studies during hospitalization [Text1]: Pending at discharge 05/26/22 09:06 Surgical [PTH] Routine Labs on day of discharge: Laboratory Results - last 24 hr 05/27/22 05/27/22 05/28/22 16:45 19:28 05:09 WBC 9.8 RBC 3.76 L Hgb 10.8 L Hct 32.7 L MCV 87.0 MCH 28.7 MCHC 33.0 RDW 13.6 Plt Count 306 MPV 9.8 Immature Gran % (Auto) 0.3 Neut % (Auto) 73.6 H Lymph % (Auto) 14.7 L [place] % (Auto) 9.5 Eos % (Auto) 1.7 Baso % (Auto) 0.2 Lymph # (Auto) 1.4 [place] # (Auto) 0.9 Eos # (Auto) 0.2 Baso # (Auto) 0.0 Abs Immat Gran (auto) 0.03 Absolute Neuts (auto) 7.2 Absolute Nucleated RBC 0.000 Nucleated RBC % (auto) 0.0 Sodium Potassium Chloride Carbon Dioxide Anion Gap BUN Creatinine Estim Creat Clear Calc Estimated GFR POC Glucose 166 H 127 H Fasting Glucose Calcium 05/28/22 05/28/22 05:09 07:42 WBC RBC Hgb Hct MCV MCH MCHC RDW Plt Count MPV Immature Gran % (Auto) Neut % (Auto) Lymph % (Auto) [place] % (Auto) Eos % (Auto) Baso % (Auto) Lymph # (Auto) [place] # (Auto) Eos # (Auto) Baso # (Auto) Abs Immat Gran (auto) Absolute Neuts (auto) Absolute Nucleated RBC Nucleated RBC % (auto) Sodium 139 Potassium 3.8 Chloride 103 Carbon Dioxide 29 Anion Gap 11 L BUN 14 Creatinine 0.77 Estim Creat Clear Calc 68.9 Estimated GFR > 60 POC Glucose 169 H Fasting Glucose 146 H Calcium 8.1 L Discharge Plan Discharge Anticipated Discharge Date/Time: 05/28/22 12:00 Patient Disposition: Home Health Service Discharge Diagnosis: S/P RT TKA Referrals: Grace Machado PA-C [Physician Satellite [employer] Installer] - 2 Weeks (06/10/22 2:15 [facility] Grace Machado PA-C) Discharge Medications: New acetaminophen 325 mg Tablet 650 mg PO Q6H PRN (Reason: Pain, Mild (Pain Scale 1-3)) 30 Days Qty: 240 0RF enoxaparin 40 mg/0.4 mL Syringe 40 mg subcut Q24H 42 Days Qty: 16.8 0RF oxycodone 10 mg tablet 10 mg PO Q6H PRN (Reason: pain (scale score 4-6)) 7 Days Qty: 28 0RF Rx Instructions: Partial Fill upon patient request. Continued buspirone 5 mg tablet 1 tab PO BID atorvastatin 20 mg tablet 1 tab PO BEDTIME sumatriptan succinate 25 mg tablet 1 tab PO QD-BID amitriptyline 10 mg tablet 1 tab PO BEDTIME amlodipine 10 mg tablet 1 tab PO DAILY zolpidem 12.5 mg tablet,ext release multiphase 12.5 mg PO BEDTIME PRN (Reason: Sleep) fluticasone propionate 50 mcg/actuation spray,suspension 1 spray intranasal DAILY albuterol sulfate [Ventolin HFA] 90 mcg/actuation HFA aerosol inhaler 2 puff inhalation Q4-6H PRN (Reason: Wheezing) pantoprazole 40 mg tablet,delayed release (DR/EC) 40 mg PO DAILY levothyroxine 137 mcg tablet 137 mcg PO DAILY celecoxib 200 mg capsule 200 mg PO BID oxybutynin chloride 5 mg tablet extended release 24hr 5 mg PO DAILY glipizide 5 mg tablet 5 mg PO BID duloxetine 30 mg capsule,delayed release(DR/EC) 30 mg PO DAILY Discontinued aspirin 81 mg Tablet 81 mg PO DAILY Discharge Orders: Discharge Order (Routine); Ordered 05/28/22 Ordered By: Grace Machado Diet: Regular diet Activity on Discharge: Use cane or walker Stand Alone Forms: Patient Portal Discharge page Care Plan Goals: Restore function of joint Health Concerns: none Plan of Treatment: Physical Therapy Pain management DVT prophylaxis Assessment: Physical Therapy for Total knee arthroplasty: WBAT, gait training, ROM 0-12, quad strength * Limit stair climbing * No showering, no tub bath-keep dressing clean, dry and intact * No driving x6 weeks * Continue Lovenox once a day x 6 weeks * Follow up with [facility] in 2 weeks: 06/10/22 2:15 [facility] SurgeonsGrace Machado PA-C *
--- NOTE | 2022-05-28 07:59 | P.F2F_ITS ---
Service Date Service Date: 05/28/22 Encounter Date of encounter: 05/28/22 Reasons for Services Signs and symptoms assessed: Pt. is considered homebound due to recent surgery. Unable to drive, poor balance, poor gait mechanics. s/p RTKA Reason for physical therapy: home safety and mobility, therapeutic exercises, restore joint function, gait/transfer training, assess need for DME and ADL training Homebound: Leaving the home is medically contraindicated at this time without the asist of a device and/or another person due th the listed conditions above and below. Reason homebound: unsteady gait / fall risk, leg weakness, pain with ambulation, pain with transfers, poor balance / fall risk and unable to drive Certification: Based on the above findings, I certify that this patient is confined to the home and needs intermittent assisted care, physical therapy and/or speech therapy, or continues to need occupational therapy. The patient is under my care, and I have initiated the establishment of the plan of care. The patient will be followed by a physician who will periodically review the plan of care.
[2022-05-28 08:00] VITALS: BP 116/53; PULSE 85; RESP 16; TEMP 36.6; O2SAT 94
[2022-05-28] MEDS: Enoxaparin Sodium 40 MG/0.4 ML SYRINGE SUBCUT (08:47)
[2022-05-28] MEDS: DULoxetine HCl 30 MG CAPSULE.DR PO (08:48)
[2022-05-28] MEDS: Losartan Potassium 50 MG TABLET PO (08:48)
[2022-05-28] MEDS: SUMAtriptan succinate 25 MG TABLET PO (08:48)
[2022-05-28] MEDS: busPIRone HCl 5 MG TABLET PO (08:48)
[2022-05-28] MEDS: Docusate Sodium 100 MG CAPSULE PO (08:49)
[2022-05-28] MEDS: Insulin Lispro 100 UNIT/ML 3 ML VIAL SUBCUT (08:49)
[2022-05-28] MEDS: Celecoxib 200 MG CAPSULE PO (08:49)
[2022-05-28] MEDS: oxyCODONE HCl ER 10 MG TAB.ER.12H PO (08:49)
[2022-05-28 08:50] VITALS: BP 116/53; PULSE 85; O2SAT 94
[2022-05-28] MEDS: 0.9 % Sodium Chloride Flush 3 ML SYRINGE IVFLUSH (08:50)
[2022-05-28 10:57] VITALS: BP 104/51; PULSE 84; RESP 17; TEMP 36.8; O2SAT 92
[2022-05-28 11:05] LABS: Glucose, Whole Blood 112 mg/dL (60-115)
== END 2022-05-28 11:30 | disposition home health service (06) | DRG 470 ==
LOC: HO.SSSA 06:15 → HO.S3 13:54
PROVIDERS: Physician Assistant; Admitting Provider Orthopaedic Surgery; PCP Internal Medicine Geriatric Medicine; Visit Provider Orthopaedic Surgery
PROC: 0SRC0JA Replacement of Right Knee Joint with Synthetic Substitute, Uncemented, Open Approach (ICD-10-PCS; CPT 27447; principal; 2022-05-26 07:30)
DX: M17.11 Unilateral primary osteoarthritis, right knee (principal); Z86.73 Personal history of transient ischemic attack (TIA), and cerebral infarction without residual deficits; G47.33 Obstructive sleep apnea (adult) (pediatric); E03.9 Hypothyroidism, unspecified; I10 Essential (primary) hypertension; E11.9 Type 2 diabetes mellitus without complications; J45.909 Unspecified asthma, uncomplicated; F17.210 Nicotine dependence, cigarettes, uncomplicated; Z20.822 Contact with and (suspected) exposure to COVID-19; Z71.6 Tobacco abuse counseling; Z88.1 Allergy status to other antibiotic agents; Z88.5 Allergy status to narcotic agent; Z88.6 Allergy status to analgesic agent; Z79.51 Long term (current) use of inhaled steroids; Z79.84 Long term (current) use of oral hypoglycemic drugs; Z79.899 Other long term (current) drug therapy
CPT/HCPCS: 36415; 73560; 80048; 82947; 85014; 85018; 85025; 86850; 86900; 86901; 87635; 87640; 87641; 88305; 88311; 93005; 97110; 97162; 97530; C1776; J0131; J0690; J1170; J1650; J2795

== ENCOUNTER → 2022-06-10 13:28 | Outpatient (BNVA) | payer OTHER, SELFPAY | PROVIDERS: Visit Provider Physician Assistant | DX: Z13.89 Encounter for screening for other disorder (principal) ==

== ENCOUNTER → 2022-07-01 08:26 | Outpatient (BNVA) | payer OTHER, SELFPAY | PROVIDERS: Visit Provider Orthopaedic Surgery | DX: Z13.89 Encounter for screening for other disorder (principal) ==

== ENCOUNTER 2022-07-21 13:00 | Outpatient (RCR) | payer OTHER, SELFPAY ==
--- NOTE | 2022-06-23 14:57 | MHC.PT.EP ---
[facility] [place] Office [place] [facility] [place] [facility] [address] Randy Kumar [address] [phone] F: [phone] F: [phone] F: [phone] F: [phone] Physical Therapy Plan of Care Date of Evaluation: Date of Surgery: 05/26/2022 Diagnosis: s/p R TKA Assessment: Patient is a 71 year old female presenting to PT s/p R TKA on 05/26/2022. She presents today with impairments in pain, ROM, knee strength, patella mobility, hip strength. Pt's current occupation is none, with baseline physical activities including ambulating, ADLs, stair negotiation. 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 Clinical presentation today is most consistent with signs and sx associated with s/p R TKA and pt will benefit from skilled PT to address the following problems and impairments noted upon evaluation: pain, ROM, knee strength, hip strength, patella mobility. These problems limit the patient with the following functional activities: ambulating, ADLs, stair negotiation. The prescribed treatment plan of care is medically necessary. Co-morbidities of hx CVA, DM, HTN, osteoporosis were identified and taken into considerations of plan of care. Pt was educated on HEP, role of PT, prognosis, POC. Advised pt to reach out to ortho regarding incision with soft scab as described as above especially if it begins to worsen. Frequency and Duration: The patient will be seen 2 x week x 4 weeks Short Term Goals: Pt will demonstrate improved R knee AROM to 125 in 2 weeks for symmetry. Pt will demonstrate R knee 5/5 MMT strength in 2 weeks. Pt will demonstrate improved R patella mobility to 3/6 in 2 weeks. Halfway Goals: Pt will demonstrate improved LEFI score by 9 points in 4 weeks for improved functional mobility. Pt will demonstrate ability to ambulate with LRD in 4 weeks for improved access to the community. Pt will demonstrate ability to complete ADLs at her PLOF in 4 weeks. Treatment Plan: Modalities to reduce pain, spasms and effusion. Manual therapy to restore motion and function. Therapeutic exercise to improve strength and flexibility. Neuromuscular re-education for posture and balance. Therapeutic activities to return to functional activities of daily living. Electronically signed by: Marilyn Fang, PT, DPT, ATC Please sign and return to therapist. Thank you for your referral.
--- NOTE | 2022-07-21 13:48 | MHC.PT.DC ---
[facility] [place] Office [place] Office [place] Office [address] Randy Kumar [address] [phone] F: [phone] F: [phone] F: [phone] F: [phone] Physical Therapy Discharge Report Diagnosis: s/p R TKA Date of Surgery: 05/26/2022 Date of Evaluation: 06/23/22 Date of Discharge: 07/21/22 Treatments to Date: 8 Cancellations to Date: 1 No Shows to Date: 0 Discharge Status: Achieved Goals Improved Function Independent with HEP Discharge Summary: 07/21/2022: Pt has made progress since beginning skilled PT. Currently she demonstrates good ROM and strength and has met each of her goals. She is still demonstrating some antalgic gait patterns which I discussed with her she should continue to work on these. She verbalized understanding and would like to continue on her own. Therefore we will d/c her today and recommend she continues with all exercises at home to continue to make gains and maintain progress thus far. If any issues arise she should follow up with her surgeon if needed. Electronically signed by: Marilyn Fang, PT, DPT, ATC Please sign and return to therapist. Thank you for your referral.
== END 2022-07-21 13:55 | disposition home or self-care (01) ==
LOC: HO.PTCHIC 13:00
PROVIDERS: PCP Internal Medicine Geriatric Medicine; Visit Provider Physician Assistant
DX: Z96.651 Presence of right artificial knee joint (principal)
CPT/HCPCS: 97110; 97162; 97530

== ENCOUNTER 2023-03-15 16:13 | Outpatient (REF) | payer OTHER, SELFPAY ==
[2023-03-15 17:17] LABS: MANUAL DIFF FLAG NO
[2023-03-15 17:27] LABS: Basophils Percent Auto 0.7 % (0-2); Eosinophils Absolute Auto 0.1 X10*3/uL (0.0-0.4); Eosinophils Percent Auto 2.3 % (0-4); Hematocrit 41.6 % (37.0-47.0); Hemoglobin 13.8 g/dl (12.0-16.0); Imm Gran Abs Auto 0.02 X10*3/uL (0.00-0.03); Imm Gran Pct Auto 0.3 % (0.0-0.4); Lymphocytes Absolute Auto 2.1 X10*3/uL (1.2-4.9); Lymphocytes Percent Auto 33.3 % (20-40); Mean Corpuscular HGB Conc 33.2 g/dl (31.0-35.0); Mean Corpuscular Hemoglobin 27.8 pg (27.0-33.0); Mean Corpuscular Volume 83.9 fL (80.0-98.0); Mean Platelet Volume 9.5 fL (9.4-12.3); Monocytes Absolute Auto 0.5 X10*3/uL (0.1-1.2); Monocytes Percent Auto 7.6 % (2-11); Neutrophils Absolute Auto 3.4 x10*3/uL (2.0-8.3); Neutrophils Percent Auto 55.8 % (45-73); Platelet Count 368 X10*3/uL (160-400); Red Blood Count 4.96 X10*6/uL (4.20-5.50); White Blood Count 6.2 X10*3/uL (4.8-10.8)
[2023-03-15 17:37] LABS: Anion Gap 13 (12-20); Blood Urea Nitrogen 9 mg/dL (9-16); Calcium 9.4 mg/dL (8.4-10.2); Carbon Dioxide 28 mmol/L (22-29); Chloride 104 mmol/L (96-108); Estimated Glomerular Filt Rate > 60; Glucose Random 87 mg/dL (60-115); Potassium 4.1 mmol/L (3.3-5.1); Sodium 141 mmol/L (135-145)
== END 2023-03-15 16:14 | disposition home or self-care (01) ==
LOC: HO.HHCL 16:13
PROVIDERS: Visit Provider Internal Medicine Geriatric Medicine
DX: Z13.89 Encounter for screening for other disorder (principal)
CPT/HCPCS: 36415; 80048; 85025

== ENCOUNTER 2023-04-07 12:36 | Outpatient (REF) | payer OTHER, SELFPAY ==
--- NOTE | ~2023-04-07 | XR_ITS ---
EXAMINATION: XR CHEST 2 VIEW CLINICAL INFORMATION: Cough, crackles at left lung base COMPARISON: No prior studies are available for comparison. TECHNIQUE: PA and lateral views of the chest obtained. FINDINGS: The lungs are clear. There are no pleural effusions. The cardiomediastinal silhouette is normal. XR/XR chest 2V IMPRESSION: No acute cardiopulmonary disease.
== END 2023-04-07 12:37 | disposition home or self-care (01) ==
LOC: HO.HHCX 12:36
PROVIDERS: Visit Provider Internal Medicine Geriatric Medicine
DX: R05.1 Acute cough (principal); R53.81 Other malaise; R53.83 Other fatigue; R09.89 Other specified symptoms and signs involving the circulatory and respiratory systems
CPT/HCPCS: 71046

== ENCOUNTER 2023-08-05 11:04 | Outpatient (REF) | payer OTHER, SELFPAY ==
[2023-08-05 13:24] LABS: MANUAL DIFF FLAG NO
[2023-08-05 13:31] LABS: Basophils Percent Auto 0.4 % (0-2); Eosinophils Absolute Auto 0.1 X10*3/uL (0.0-0.4); Eosinophils Percent Auto 1.4 % (0-4); Hematocrit 42.7 % (37.0-47.0); Hemoglobin 14.2 g/dl (12.0-16.0); Imm Gran Abs Auto 0.04 X10*3/uL (0.00-0.03); Imm Gran Pct Auto 0.5 % (0.0-0.4); Lymphocytes Absolute Auto 1.9 X10*3/uL (1.2-4.9); Lymphocytes Percent Auto 25.3 % (20-40); Mean Corpuscular HGB Conc 33.3 g/dl (31.0-35.0); Mean Corpuscular Hemoglobin 28.6 pg (27.0-33.0); Mean Corpuscular Volume 85.9 fL (80.0-98.0); Mean Platelet Volume 9.4 fL (9.4-12.3); Monocytes Absolute Auto 0.5 X10*3/uL (0.1-1.2); Neutrophils Percent Auto 65.4 % (45-73); Platelet Count 384 X10*3/uL (160-400); Red Blood Count 4.97 X10*6/uL (4.20-5.50); Red Cell Distribution Width 13.8 % (11.0-16.0); White Blood Count 7.6 X10*3/uL (4.8-10.8)
[2023-08-05 13:44] LABS: Rheumatoid Factor < 13.0 IU/mL (<15.0)
[2023-08-05 14:14] LABS: Alanine Aminotransferase 14 U/L (0-31); Albumin Level 3.9 g/dL (3.5-5.0); Alkaline Phosphatase 126 U/L (39-117); Anion Gap 12 (12-20); Aspartate Amino Transferase 17 U/L (5-31); Bilirubin Total 0.3 mg/dL (0.0-1.0); Blood Urea Nitrogen 14 mg/dL (9-16); Calcium 9.2 mg/dL (8.4-10.2); Carbon Dioxide 27 mmol/L (22-29); Chloride 106 mmol/L (96-108); Estimated Glomerular Filt Rate > 60; Glucose Random 107 mg/dL (60-115); Potassium 4.2 mmol/L (3.3-5.1); Sodium 141 mmol/L (135-145); Total Protein 7.3 g/dL (6.5-8.0); Vitamin D 25-OH Total 12.4 ng/mL (>30)
[2023-08-05 14:20] LABS: Erythrocyte Sedimentation Rate 16 MM/HR (0-20)
== END 2023-08-05 11:05 | disposition home or self-care (01) ==
LOC: HO.HHCL 11:04
PROVIDERS: Visit Provider Internal Medicine Geriatric Medicine
DX: M25.50 Pain in unspecified joint (principal); E11.40 Type 2 diabetes mellitus with diabetic neuropathy, unspecified; R51.9 Headache, unspecified
CPT/HCPCS: 36415; 80053; 82306; 85025; 85652; 86431

== ENCOUNTER 2023-11-23 11:42 | Emergency (ER) | payer OTHER, SELFPAY ==
--- NOTE | ~2023-11-23 | CT_ITS ---
EXAMINATION: CT HEAD WITHOUT CONTRAST CT CERVICAL SPINE WITHOUT CONTRAST CLINICAL INFORMATION: Fall, head strike, pain. COMPARISON: Radiograph cervical spine 08/03/2016. TECHNIQUE: Contiguous axial imaging was performed from the skull base to vertex without intravenous administration of contrast. Contiguous axial imaging was performed from the upper chest through the skull base without intravenous administration of contrast. Coronal and sagittal reformats were obtained at the acquisition workstation. This CT examination was performed using dose optimization techniques as appropriate, variously including the following: *Automated exposure control *Adjustment of mA and/or kV according to patient size (this includes techniques or standardized protocols for targeted exams where dose is matched to indication/reason for exam; i.e. extremities or head) *Use of iterative reconstruction technique DLP: 903 and 471 mGy-cm FINDINGS: Limited evaluation secondary to motion. Head: There is no evidence of acute intracranial hemorrhage or edematous territorial infarction. Age indeterminate lacunar infarcts in the bilateral basal ganglia and right thalamus. Confluent hypoattenuation in the periventricular and deep white matter. Porter-white matter differentiation is preserved. Proportional prominence of the ventricles and sulcal spaces. No evidence for obstructive hydrocephalus. No abnormal mass effect or midline shift. No extra-axial fluid collections. No acute soft tissue or osseous abnormalities. The mastoid air cells and paranasal sinuses are clear. Bilateral lens extraction. Cervical Spine: The atlantooccipital and atlantoaxial articulations remain well aligned. No evidence of acute fracture or subluxation. Moderate multilevel cervical spondylosis with intervertebral disc height loss and facet/uncovertebral hypertrophy leading to various degrees of neural foraminal encroachment. Very prominent multilevel anterior osteophytes. There is no prevertebral soft tissue swelling. The thyroid gland and remaining cervical soft tissues are normal in appearance. The lung apices demonstrate no abnormalities. CT/CT cervical spine wo IV con IMPRESSION: 1. No acute intracranial hemorrhage or edematous infarction with the caveat of limited evaluation due to motion. 2. Age-indeterminate lacunar infarcts in the bilateral basal ganglia and right thalamus. If clinically indicated, consider further evaluation with an MR of the brain. 3. Extensive chronic microangiopathy and generalized cerebral volume loss. 4. No acute cervical fractures or malalignment. 5. Moderate cervical spondylosis.
--- NOTE | ~2023-11-23 | XR_ITS ---
EXAMINATION: XR KNEE, LEFT CLINICAL INFORMATION: Fall. Knee pain COMPARISON: Left knee August 03, 2016, March 15, 2022 TECHNIQUE: Four views of the left knee. FINDINGS: No acute fracture. Location. 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 No joint effusion. There is enthesophyte of the patella the insertion of the quadriceps tendon. Mild narrowing of the medial femoral tibial joint. No bone erosion or significant bone spurs. XR/XR knee LT 4V IMPRESSION: No acute abnormality of the knee.
--- NOTE | ~2023-11-23 | CT_ITS ---
EXAMINATION: CT CHEST, ABDOMEN, AND PELVIS WITH CONTRAST CLINICAL INFORMATION: 72-year-old female with back pain and pelvic pain following fall COMPARISON: None TECHNIQUE: Multidetector volumetric CT imaging of the chest, abdomen, and pelvis was obtained after the administration of 85 mL of Omnipaque 350 intravenous contrast without immediate adverse reactions. Axial MIP volume rendering provided. Sagittal and coronal reformatted images were obtained. This CT examination was performed using dose optimization techniques as appropriate, variously including the following: *Automated exposure control *Adjustment of mA and/or kV according to patient size (this includes techniques or standardized protocols for targeted exams where dose is matched to indication/reason for exam; i.e. extremities or head) *Use of iterative reconstruction technique DLP: 702 mGy-cm FINDINGS: LUNGS: The lungs are clear with no evidence of inflammation or nodules. MEDIASTINUM: The mediastinum appears unremarkable. CORONARY ARTERY CALCIFICATION: None seen PLEURA: There is no pleural effusion. No pleural mass or thickening. AXILLA: No lymphadenopathy by size criteria. LIVER, GALLBLADDER, AND BILIARY TREE: The liver appears unremarkable in size, shape, and attenuation. No focal hepatic lesion or biliary ductal dilatation is appreciated. Gallbladder is surgically absent. PANCREAS: Unremarkable SPLEEN: Unremarkable ADRENAL GLANDS: Unremarkable KIDNEYS AND URETERS: Both kidneys revealed small cysts with the largest cyst in the left kidney measured 2.7 cm and the largest cyst in the right kidney BLADDER: Unremarkable GASTROINTESTINAL TRACT: Changes of diverticulosis without diverticulitis in the sigmoid colon. Appendix not identified. There is no colitis. No mesenteric inflammatory changes. ABDOMINAL WALL: No significant hernia is appreciated. LYMPH NODES: No evidence of adenopathy by size criteria. VASCULAR: Unremarkable. PELVIC VISCERA: Uterus is surgically absent. OSSEOUS STRUCTURES: There are degenerative changes at the level of L5-S1 and T12-T11 with vacuum phenomenon and subchondral sclerosis but no evidence of fractures. CT/CT abdomen pelvis w IV con IMPRESSION: 1. No evidence of fractures. Degenerative changes in lower thoracic and lower lumbar spine. 2. Diverticulosis without diverticulitis. 3. Status post cholecystectomy and hysterectomy.
[2023-11-23 11:50] VITALS: BP 158/78; PULSE 92; O2SAT 96
[2023-11-23 11:52] VITALS: BP 135/46; PULSE 93; RESP 16; TEMP 36.4; O2SAT 94; BMI 36.1
--- NOTE | 2023-11-23 12:07 | ED_ITS ---
HPI - General Adult General Chief complaint: Fall Stated complaint: FALL T-1,L KNEE PAIN/SWELLING PER EMS Time Seen by Provider: 11/23/23 11:48 Source: patient Mode of arrival: EMS Limitations: other (poor historian ) History of Present Illness ED Provider: Kevyn Miranda PA-C HPI narrative: 72 yo female pmh nicotine dependence pyh 40+ years, DMT2, GERD, hylperlipidemia, LIANA, asthma, CVA, hypothyroidism, HTN presents following fall at home last night with complaints of left sided buttock, leg and knee pain. Patient reports she was using her walker and lost her balance, proceeded to fall onto her walker. Unsure of head strike or LOC but denies headache or tenderness. Patient reports she urinated on herself after the fall because she could get up and needed assistance from her home [employer] to get up. States she can not ambulate now due to pain ( however is ambulatory in the department without difficulty). Denies chest pain, sob, numbness, tingling, fever, chills, changes to bowel or bladder habits, weaknss, dizziness. Takes baby aspirin but not on any other blood thinners. Related Data Home Medications ?Medication ?Instructions ?Recorded ?Confirmed celecoxib 200 mg capsule 200 mg PO BID 03/15/22 05/07/22 duloxetine 30 mg capsule,delayed 30 mg PO DAILY 03/15/22 05/07/22 release glipizide 5 mg tablet 5 mg PO BID 03/15/22 05/07/22 oxybutynin chloride 5 mg 5 mg PO DAILY 03/15/22 05/07/22 tablet,extended release 24 hr albuterol sulfate 90 mcg/actuation 2 puff inhalation Q4-6H PRN 04/28/22 05/07/22 aerosol inhaler (Ventolin HFA) Wheezing fluticasone propionate 50 1 spray intranasal DAILY 04/28/22 05/07/22 mcg/actuation nasal spray,suspension levothyroxine 137 mcg tablet 137 mcg PO DAILY 04/28/22 05/07/22 pantoprazole 40 mg tablet,delayed 40 mg PO DAILY 04/28/22 05/07/22 release zolpidem 12.5 mg tablet,extended 12.5 mg PO BEDTIME PRN Sleep 04/28/22 05/07/22 release,multiphase amitriptyline 10 mg tablet 1 tab PO BEDTIME 05/07/22 05/07/22 atorvastatin 20 mg tablet 1 tab PO BEDTIME 05/07/22 05/07/22 buspirone 5 mg tablet 1 tab PO BID 05/07/22 05/07/22 sumatriptan succinate 25 mg tablet 1 tab PO QD-BID migraine 05/07/22 05/07/22 amlodipine 10 mg tablet 1 tab PO DAILY 05/10/22 05/10/22 Previous Rx's ?Medication ?Instructions ?Recorded acetaminophen 325 mg tablet 650 mg (2 x 325 mg) PO Q6H PRN 05/28/22 Pain, Mild (Pain Scale 1-3) 30 days #240 tabs enoxaparin 40 mg/0.4 mL 40 mg (0.4 mL) subcut Q24H 42 days 05/28/22 subcutaneous syringe #16.8 mL oxycodone 5 mg tablet 5 mg PO Q6H PRN pain (scale score 06/18/22 4-6) 7 days #28 tabs acetaminophen 325 mg capsule 325 mg PO Q4H PRN pain #30 caps 11/23/23 (Tylenol) Allergies Allergy/AdvReac Type Severity Reaction Status Date / Time aspirin AdvReac Anxiety Verified 11/23/23 11:59 codeine AdvReac Anxiety Verified 11/23/23 11:59 bactrim Allergy Blister Uncoded 06/07/22 10:14 Review of Systems 2 Review of Systems: Yes all other systems are reviewed and are negative PMFSH Past Medical History Attestation statement: The following information was validated with the patient. Source: old records reviewed and nursing notes reviewed Medical History (Updated 11/23/23 @ 14:30 by NITIN Bhatia) Nicotine dependence, cigarettes, uncomplicated GERD (gastroesophageal reflux disease) Hyperlipidemia Type 2 diabetes mellitus LIANA (obstructive sleep apnea) Asthma History of CVA (cerebrovascular accident) without residual deficits Hypothyroidism Osteoarthritis of right knee Hypertension Surgical History (Updated 11/08/22 @ 13:14 by Anamaria Kruger PA-C) History of hysterectomy History of total right knee replacement History of cholecystectomy Social History Social History Are you a primary home care chaplain to a significant other at home: No Do you presently have visiting nurse or other home services: Yes ([employer]) Patient Tobacco Use Status: Current everyday Tobacco user Tobacco use type: Cigarette Cigarettes Per Day: 5 Years Smoked: 55 Second Hand Smoke Exposure: No Advance Directives: No Advance Directives Information Provided: No Do you have a plan to hurt others: No Plan service: No Current occupational status: disabled Physical Exam ED Vital Signs: Vital Signs - 24 hr 11/23/23 11:52 11/23/23 15:35 Temperature 97.5 F 97.5 F Pulse Rate 93 84 Respiratory Rate 16 18 Blood Pressure 135/46 L 106/70 Pulse Oximetry 94 96 Oxygen Delivery Method Room Air Room Air BMI result Body Mass Index 36.1 vss. Appearance: Alert.? Oriented X3.? No acute distress.? Head: Normocephalic, atraumatic, no step-offs or deformities Eyes: Pupils equal, round and reactive to light.? Neck: Normal inspection.? Neck supple.? CVS: Normal heart rate and rhythm.? Pulses normal.? Respiratory: No respiratory distress.? Breath sounds normal.? Abdomen: Soft and nontender.? Skin: Skin warm and dry.? Normal skin color.? Normal skin turgor.? Extremities: Mild edema to left knee. Tender to palpation of left lower extremity, knee, and left side of buttock. No overlying ecchymosis. 2+ dp and pt pulses equal and symmetric bilaterally. Back: No midline tenderness, no C-spine tenderness, full range of motion, Neuro: Oriented X 3.? No motor deficit.? No sensory deficit. CN 2-12 intact . Ambulating independently and w/o pain to bathroom steady gait, normal coordination, no sadle paresthesias. NIHSS-0 Course Reevaluation(s) Reevaluation #1: CBC unremarkable. Chemistry no acute findings requiring intervention. Troponin 14.6 no chest pain, shortness of breath or symptoms preceding to fall therefore EKG was not obtained. Patient feels well at this time states all of her pain is gone she never had chest pain or shortness of breath however. I do not suspect acute ischemia. UA clean. Coags normal. X-ray of knee no acute abnormality in the left knee. CT head showing no acute intracranial hemorrhage or edematous territorial infarction age indeterminate lacunar infarcts in the bilateral basal ganglia and right thalamus NIH stroke scale 0, patient complaining of headache, weakness, she does report she has history of stroke x2 in the past this is likely old. No need for emergent MR brain. Excessive chronic microangiopathy generalized cerebral volume loss. No acute fractures or dislocations in the cervical spine. CT chest no evidence of fractures degenerative changes in lower thoracic and lower lumbar spine. Diverticulosis no diverticulitis. Status post cholecystectomy and hysterectomy. Patient feeling great she says her pain is at a 0/10. Feeling much better would like to go home. Will discharge with Tylenol. Educated patient on diagnosis and treatment plan, answered all question, patient verbalizes understanding. At this time patient will be discharged home, advised to return with new or worsening symptoms. Educated on worrisome signs and symptoms and when to return. At this time I feel comfortable discharge home. Time: 15:26 Medications Administered Discontinued Medications Generic Name Dose Route Start Last Admin Trade Name Freq PRN Reason Stop Dose Admin Acetaminophen 975 mg 11/23/23 14:27 11/23/23 14:39 Acetaminophen 325 Mg Tablet PO 11/23/23 14:28 975 mg ONCE ONE Administration Iohexol 85 ml 11/23/23 13:31 11/23/23 13:31 Iohexol 350 Mg/Ml 75 Ml Infus..Btl IV 11/23/23 13:32 85 ml ONCE ONE Administration Medical Decision Making Medical Decision Making MDM Narrative: 1200 72 yo female s/p fall last night complaining of left sided buttock, leg. and knee pain. Unsure of head strike or loc. PE: Extremities: Mild edema to left knee. Tender to palpation of left lower extremity, knee, and left side of buttock. No overlying ecchymosis. 2+ dp and pt pulses equal and symmetric bilaterally. Differential: Left knee sprain vs strain, Rule out fracture/dislocations. No acute signs of trauma to chest, abdomen, pelvis, head or neck. Unlikely brain bleed, concussion, compartment syndrome, cuada equina, cord compression, epidural abscess. No signs of arterial or venous occlusion Plan: Imaging, pain control Differential Diagnosis Differential Diagnoses: The differential diagnosis associated with the presentation includes (Left knee sprain vs strain, Rule out fracture/dislocations. No acute signs of trauma to chest, abdomen, pelvis. Unlikely brain bleed, concussion, compartment syndrome, cuada equina. ) Left knee sprain vs strain, Rule out fracture/dislocations. No acute signs of trauma to chest, abdomen, pelvis, head or neck. Unlikely brain bleed, concussion, compartment syndrome, cuada equina, cord compression, epidural abscess. No signs of arterial or venous occlusion Admission/Observation Consideration of admission/observation: Escalation of care including admission/observation considered Possible Lab Data MDM Lab Attestation statement: I reviewed the patient's lab results. 11/23/23 12:12 11/23/23 12:12 Labs: Lab Results 11/23/23 11/23/23 11/23/23 Range/Units 12:12 12:12 14:52 WBC 5.4 (4.8-10.8) X10*3/uL RBC 4.63 (4.20-5.50) X10*6/uL Hgb 13.1 (12.0-16.0) g/dl Hct 39.3 (37.0-47.0) % MCV 84.9 (80.0-98.0) fL MCH 28.3 (27.0-33.0) pg MCHC 33.3 (31.0-35.0) g/dl RDW 14.2 (11.0-16.0) % Plt Count 346 (160-400) X10*3/uL MPV 8.8 L (9.4-12.3) fL Immature Gran % (Auto) 0.2 (0.0-0.4) % Neut % (Auto) 58.0 (45-73) % Lymph % (Auto) 30.8 (20-40) % Cass % (Auto) 7.6 (2-11) % Eos % (Auto) 2.8 (0-4) % Baso % (Auto) 0.6 (0-2) % Lymph # (Auto) 1.7 (1.2-4.9) X10*3/uL Cass # (Auto) 0.4 (0.1-1.2) X10*3/uL Eos # (Auto) 0.2 (0.0-0.4) X10*3/uL Baso # (Auto) 0.0 (0.0-0.2) X10*3/uL Abs Immat Gran (auto) 0.01 (0.00-0.03) X10*3/uL Absolute Neuts (auto) 3.2 (2.0-8.3) x10*3/uL Absolute Nucleated RBC 0.000 (0.0-0.012) X10*3/uL Nucleated RBC % (auto) 0.0 (0.0-0.2) /100WBC PT 11.7 (11.1-13.3) SEC INR 1.0 (0.9-1.1) Sodium 142 (135-145) mmol/L Potassium 3.8 (3.3-5.1) mmol/L Chloride 106 (96-108) mmol/L Carbon Dioxide 28 (22-29) mmol/L Anion Gap 12 (12-20) BUN 13 (9-16) mg/dL Creatinine 0.79 (0.5-1.4) mg/dL Estim Creat Clear Calc 67.9 Estimated GFR > 60 Random Glucose 140 H (60-115) mg/dL Calcium 9.3 (8.4-10.2) mg/dL Total Bilirubin 0.4 (0.0-1.0) mg/dL AST 17 (5-31) U/L ALT 12 (0-31) U/L Alkaline Phosphatase 120 H (39-117) U/L Troponin I High Sens Cancelled 14.6 Total Protein 7.0 (6.5-8.0) g/dL Albumin 3.8 (3.5-5.0) g/dL Urine Color Yellow Urine Appearance Clear Urine pH 8.0 (5.0-9.0) Ur Specific [place] >= 1.030 H (1.005-1.025) Urine Protein Negative (Neg-Trace) mg/dL Urine Glucose (UA) Negative (Negative) mg/dL Urine Ketones Negative (Negative) mg/dL Urine Blood Negative (Negative) Urine Nitrite Negative (Negative) Ur Leukocyte Esterase Negative (Negative) Independent Interpretation I performed an independent interpretation of an: CT Scan Radiology Impression Discussion of test interpretation with radiology: I have reviewed the radiologist's reading. External Record Review External record reviewed: Inpatient record, Office record, Outpatient record, Prior outpatient labs, Prior outpatient radiology, Primary care record and Outside ED record Prescription Management I considered prescription management with: Pain Medication Chronic Conditions Patient?s care impacted by: Diabetes, Hypertension and Other GERD, LIANA, asthma, hyperlipidemia Social Determinants Patient?s care significantly limited by Social Determinants of Health including: Other Social Determinant of Health Critical Care Time Critical Care Time Critical Care Time: Yes Total Critical Care Time: 35 Attestation: I attest to this time spent taking care of the patient, obtaining history, physical, reviewing labs, imaging, speaking to my attending, speaking to specialist. Discharge Plan Discharge Clinical Impression: Fall on same level from tripping, Left buttock pain, Acute pain of left knee, Leg pain, left Patient Disposition: Home, Self-Care Instructions: Arthralgia (ED), Leg Pain (ED) Additional Instructions: Take your medications as prescribed. If you were prescribed antibiotics today, it is important that you take your medication to their entirety, do not skip any doses, do not finish them early. Follow-up with your primary care provider this week. Return to the emergency department with new or worsening symptoms. Such as fevers, chills, chest pain, shortness of breath, nausea, vomiting, dizziness, headache, vision changes, lethargy In case of emergency call 911 XR/XR knee LT 4V IMPRESSION: No acute abnormality of the knee. CT/CT head/brain & cervical spine wo IV con IMPRESSION: 1. No acute intracranial hemorrhage or edematous infarction with the caveat of limited evaluation due to motion. 2. Age-indeterminate lacunar infarcts in the bilateral basal ganglia and right thalamus. If clinically indicated, consider further evaluation with an MR of the brain. 3. Extensive chronic microangiopathy and generalized cerebral volume loss. 4. No acute cervical fractures or malalignment. 5. Moderate cervical spondylosis. CT/CT chest w IV con IMPRESSION: 1. No evidence of fractures. Degenerative changes in lower thoracic and lower lumbar spine. 2. Diverticulosis without diverticulitis. 3. Status post cholecystectomy and hysterectomy. CT/CT abdomen pelvis w IV con IMPRESSION: 1. No evidence of fractures. Degenerative changes in lower thoracic and lower lumbar spine. 2. Diverticulosis without diverticulitis. 3. Status post cholecystectomy and hysterectomy. Prescriptions: New acetaminophen [Tylenol] 325 mg capsule 325 mg PO Q4H PRN (Reason: pain) Qty: 30 0RF No Action enoxaparin 40 mg/0.4 mL syringe 40 mg subcut Q24H 42 Days Qty: 16.8 0RF oxycodone 5 mg tablet 5 mg PO Q6H PRN (Reason: pain (scale score 4-6)) 7 Days Qty: 28 0RF Rx Instructions: Partial Fill upon patient request. buspirone 5 mg tablet 1 tab PO BID atorvastatin 20 mg tablet 1 tab PO BEDTIME sumatriptan succinate 25 mg tablet 1 tab PO QD-BID amitriptyline 10 mg tablet 1 tab PO BEDTIME amlodipine 10 mg tablet 1 tab PO DAILY acetaminophen 325 mg Tablet 650 mg PO Q6H PRN (Reason: Pain, Mild (Pain Scale 1-3)) 30 Days Qty: 240 0RF zolpidem 12.5 mg tablet,ext release multiphase 12.5 mg PO BEDTIME PRN (Reason: Sleep) fluticasone propionate 50 mcg/actuation spray,suspension 1 spray intranasal DAILY albuterol sulfate [Ventolin HFA] 90 mcg/actuation HFA aerosol inhaler 2 puff inhalation Q4-6H PRN (Reason: Wheezing) pantoprazole 40 mg tablet,delayed release (DR/EC) 40 mg PO DAILY levothyroxine 137 mcg tablet 137 mcg PO DAILY celecoxib 200 mg capsule 200 mg PO BID oxybutynin chloride 5 mg tablet extended release 24hr 5 mg PO DAILY glipizide 5 mg tablet 5 mg PO BID duloxetine 30 mg capsule,delayed release(DR/EC) 30 mg PO DAILY Referrals: Name,MD Darian [Primary Care Provider] - 1 week Stand Alone Forms: Work/School Release Interventions: ED Discharge Assessment Last Done: 11/23/23 15:35 Discharge Date/Time: 11/23/23 15:36 Print Language: Ukrainian
[2023-11-23 12:17] LABS: MANUAL DIFF FLAG NO
[2023-11-23 12:18] LABS: Basophils Percent Auto 0.6 % (0-2); Eosinophils Absolute Auto 0.2 X10*3/uL (0.0-0.4); Eosinophils Percent Auto 2.8 % (0-4); Hematocrit 39.3 % (37.0-47.0); Hemoglobin 13.1 g/dl (12.0-16.0); Imm Gran Abs Auto 0.01 X10*3/uL (0.00-0.03); Imm Gran Pct Auto 0.2 % (0.0-0.4); Lymphocytes Absolute Auto 1.7 X10*3/uL (1.2-4.9); Lymphocytes Percent Auto 30.8 % (20-40); Mean Corpuscular HGB Conc 33.3 g/dl (31.0-35.0); Mean Corpuscular Hemoglobin 28.3 pg (27.0-33.0); Mean Corpuscular Volume 84.9 fL (80.0-98.0); Mean Platelet Volume 8.8 fL (9.4-12.3); Monocytes Absolute Auto 0.4 X10*3/uL (0.1-1.2); Monocytes Percent Auto 7.6 % (2-11); Neutrophils Absolute Auto 3.2 x10*3/uL (2.0-8.3); Platelet Count 346 X10*3/uL (160-400); Red Blood Count 4.63 X10*6/uL (4.20-5.50); Red Cell Distribution Width 14.2 % (11.0-16.0); White Blood Count 5.4 X10*3/uL (4.8-10.8)
[2023-11-23 12:27] LABS: Prothrombin Time 11.7 SEC (11.1-13.3)
[2023-11-23 12:39] LABS: Alanine Aminotransferase 12 U/L (0-31); Albumin Level 3.8 g/dL (3.5-5.0); Alkaline Phosphatase 120 U/L (39-117); Anion Gap 12 (12-20); Aspartate Amino Transferase 17 U/L (5-31); Bilirubin Total 0.4 mg/dL (0.0-1.0); Blood Urea Nitrogen 13 mg/dL (9-16); Calcium 9.3 mg/dL (8.4-10.2); Carbon Dioxide 28 mmol/L (22-29); Chloride 106 mmol/L (96-108); Creatinine Clr Calc Pharmacy 67.9; Estimated Glomerular Filt Rate > 60; Glucose Random 140 mg/dL (60-115); Potassium 3.8 mmol/L (3.3-5.1); Sodium 142 mmol/L (135-145)
[2023-11-23] MEDS: iohexoL 350 MG/ML 75 ML INFUS..BTL 85 ML IV (13:31)
--- NOTE | 2023-11-23 14:26 | MHC.EDTECH ---
pt walked to and from bathroom with a steady gait and zero assistance
[2023-11-23] MEDS: Acetaminophen 325 MG TABLET 975 MG PO (14:39)
[2023-11-23 15:00] LABS: Appearance Urine Clear; Color Urine Yellow; Glucose Urine UA Negative (Negative); Leukocyte Esterase Urine Negative (Negative); Nitrite Urine Negative (Negative); Specific Gravity - Urine >= 1.030 (1.005-1.025); Urine Blood Negative (Negative); Urine Ketones Negative (Negative); Urine Protein Negative (Neg-Trace)
[2023-11-23 15:35] VITALS: BP 106/70; PULSE 84; RESP 18; TEMP 36.4; O2SAT 96
[2023-11-23 16:04] LABS: Troponin-I High Sensitivity 14.6 ng/L (<3.5-17.0)
== END 2023-11-23 15:36 | disposition home or self-care (01) ==
PROVIDERS: Physician Assistant; Emergency Provider Student in an Organized Health Care Education/Training Program; PCP Internal Medicine Geriatric Medicine
DX: Z04.3 Encounter for examination and observation following other accident (principal); M79.605 Pain in left leg; M25.562 Pain in left knee; R10.2 Pelvic and perineal pain; Z91.81 History of falling; I10 Essential (primary) hypertension; E11.9 Type 2 diabetes mellitus without complications; E78.5 Hyperlipidemia, unspecified; F17.210 Nicotine dependence, cigarettes, uncomplicated; Z79.02 Long term (current) use of antithrombotics/antiplatelets; Z79.899 Other long term (current) drug therapy
CPT/HCPCS: 36415; 70450; 71260; 72125; 73564; 74177; 80053; 81003; 84484; 85025; 85610; 99284; Q9967

== ENCOUNTER 2024-03-16 13:59 | Emergency (ER) | payer OTHER, SELFPAY ==
[2024-03-16 14:12] VITALS: BP 166/65; PULSE 79; RESP 14; TEMP 36.6; O2SAT 94; BMI 35.9
[2024-03-16 14:45] LABS: MANUAL DIFF FLAG NO
[2024-03-16 14:46] LABS: Basophils Percent Auto 0.4 % (0-2); Eosinophils Absolute Auto 0.1 X10*3/uL (0.0-0.4); Eosinophils Percent Auto 1.3 % (0-4); Hematocrit 42.8 % (37.0-47.0); Hemoglobin 14.3 g/dl (12.0-16.0); Imm Gran Abs Auto 0.02 X10*3/uL (0.00-0.03); Imm Gran Pct Auto 0.3 % (0.0-0.4); Lymphocytes Absolute Auto 1.7 X10*3/uL (1.2-4.9); Lymphocytes Percent Auto 22.2 % (20-40); Mean Corpuscular HGB Conc 33.4 g/dl (31.0-35.0); Mean Corpuscular Hemoglobin 29.2 pg (27.0-33.0); Mean Corpuscular Volume 87.3 fL (80.0-98.0); Mean Platelet Volume 8.6 fL (9.4-12.3); Monocytes Absolute Auto 0.5 X10*3/uL (0.1-1.2); Neutrophils Absolute Auto 5.1 x10*3/uL (2.0-8.3); Neutrophils Percent Auto 68.8 % (45-73); Platelet Count 375 X10*3/uL (160-400); Red Cell Distribution Width 14.6 % (11.0-16.0); White Blood Count 7.4 X10*3/uL (4.8-10.8)
--- NOTE | 2024-03-16 14:55 | ECG_ITS ---
Test Reason : DIZZINESS Blood Pressure : / mmHG Vent. Rate : 071 BPM Atrial Rate : 071 BPM P-R Int : 170 ms QRS Dur : 066 ms QT Int : 402 ms P-R-T Axes : 074 013 056 degrees QTc Int : 436 ms Normal sinus rhythm Normal ECG When compared with ECG of 28-APR-2022 13:23, No significant change was found Referred By: Krzysztof Morley Electronically Signed By:ALVAREZ FELICIANO
[2024-03-16 14:59] LABS: Alanine Aminotransferase 19 U/L (0-31); Albumin Level 3.9 g/dL (3.5-5.0); Alkaline Phosphatase 130 U/L (39-117); Anion Gap 11 (12-20); Aspartate Amino Transferase 18 U/L (5-31); Bilirubin Total 0.2 mg/dL (0.0-1.0); Blood Urea Nitrogen 11 mg/dL (9-16); Calcium 9.7 mg/dL (8.4-10.2); Carbon Dioxide 30 mmol/L (22-29); Chloride 107 mmol/L (96-108); Creatinine Clr Calc Pharmacy 65.1; Estimated Glomerular Filt Rate > 60; Glucose Random 88 mg/dL (60-115); Potassium 4.2 mmol/L (3.3-5.1); Sodium 144 mmol/L (135-145); Total Protein 7.4 g/dL (6.5-8.0)
--- NOTE | 2024-03-16 15:01 | ED.GENADULT ---
HPI - General Adult General Chief complaint: General Medical Stated complaint: dizziness Time Seen by Provider: 03/16/24 14:22 Source: patient, RN notes reviewed, old records reviewed and translator/interpreter Mode of arrival: EMS Limitations: no limitations History of Present Illness ED Provider: Peyman HPI narrative: 73-year-old female with past medical history significant for diabetes, hypertension, hypothyroidism presents for evaluation of dizziness. Patient reports for the last 2 weeks she has had dizziness described that is worse when she changes positions. She states that when she stands up or sits down she feels ?like the room is going back and forth. ? She denies any falls or head trauma. She denies any headache or neck pain Denies any fevers, chills, shortness of breath, palpitations She does complain of tingling to left side of her face She also reports that she saw her primary doctor earlier this morning and was sent to the ER for further evaluation No other complaints or concerns at this time Related Data Home Medications ?Medication ?Instructions ?Recorded ?Confirmed celecoxib 200 mg capsule 200 mg PO BID 03/15/22 05/07/22 duloxetine 30 mg capsule,delayed 30 mg PO DAILY 03/15/22 05/07/22 release glipizide 5 mg tablet 5 mg PO BID 03/15/22 05/07/22 oxybutynin chloride 5 mg 5 mg PO DAILY 03/15/22 05/07/22 tablet,extended release 24 hr albuterol sulfate 90 mcg/actuation 2 puff inhalation Q4-6H PRN 04/28/22 05/07/22 aerosol inhaler (Ventolin HFA) Wheezing fluticasone propionate 50 1 spray intranasal DAILY 04/28/22 05/07/22 mcg/actuation nasal spray,suspension levothyroxine 137 mcg tablet 137 mcg PO DAILY 04/28/22 05/07/22 pantoprazole 40 mg tablet,delayed 40 mg PO DAILY 04/28/22 05/07/22 release zolpidem 12.5 mg tablet,extended 12.5 mg PO BEDTIME PRN Sleep 04/28/22 05/07/22 release,multiphase amitriptyline 10 mg tablet 1 tab PO BEDTIME 05/07/22 05/07/22 atorvastatin 20 mg tablet 1 tab PO BEDTIME 05/07/22 05/07/22 buspirone 5 mg tablet 1 tab PO BID 05/07/22 05/07/22 sumatriptan succinate 25 mg tablet 1 tab PO QD-BID migraine 05/07/22 05/07/22 amlodipine 10 mg tablet 1 tab PO DAILY 05/10/22 05/10/22 Previous Rx's ?Medication ?Instructions ?Recorded acetaminophen 325 mg tablet 650 mg (2 x 325 mg) PO Q6H PRN 05/28/22 Pain, Mild (Pain Scale 1-3) 30 days #240 tabs enoxaparin 40 mg/0.4 mL 40 mg (0.4 mL) subcut Q24H 42 days 05/28/22 subcutaneous syringe #16.8 mL oxycodone 5 mg tablet 5 mg PO Q6H PRN pain (scale score 06/18/22 4-6) 7 days #28 tabs acetaminophen 325 mg capsule 325 mg PO Q4H PRN pain #30 caps 11/23/23 (Tylenol) meclizine 25 mg tablet 25 mg PO TID PRN dizziness #20 tabs 03/16/24 Allergies Allergy/AdvReac Type Severity Reaction Status Date / Time aspirin AdvReac Anxiety Verified 03/16/24 14:15 codeine AdvReac Anxiety Verified 03/16/24 14:15 bactrim Allergy Blister Uncoded 03/16/24 14:15 Review of Systems Constitutional: Constitutional: Denies body ache(s), Denies chills, Denies fever(s), Denies frequent falls and Denies headache(s) Eyes: Eyes: Denies blurry vision ENT: Reports vertigo, Denies dizziness and Denies headache(s) Cardiovascular: Cardiovascular: Denies chest pain and Denies dyspnea Respiratory: Respiratory: Denies cough and Denies dyspnea Gastrointestinal: Gastrointestinal: Denies abdominal pain, Denies nausea and Denies vomiting Musculoskeletal: Musculoskeletal: Denies back pain Neurologic: Reports vertigo, Denies dizziness, Denies frequent falls and Denies headache(s) Psychiatric: Psychiatric: Denies anxiety PMF Past Medical History Medical History (Updated 03/16/24 @ 15:09 by Krzysztof Morley) Nicotine dependence, cigarettes, uncomplicated GERD (gastroesophageal reflux disease) Hyperlipidemia Type 2 diabetes mellitus LIANA (obstructive sleep apnea) Asthma History of CVA (cerebrovascular accident) without residual deficits Hypothyroidism Osteoarthritis of right knee Hypertension Surgical History (Updated 11/08/22 @ 13:14 by Anamaria Kruger PA-C) History of hysterectomy History of total right knee replacement History of cholecystectomy Social History Social History Are you a primary resident care director to a significant other at home: No Do you presently have visiting nurse or other home services: Yes (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) Patient Tobacco Use Status: Current everyday Tobacco user Tobacco use type: Cigarette Cigarettes Per Day: 5 Years Smoked: 55 Smoked in Last 30 Days: Yes Second Hand Smoke Exposure: No Use of substances other than those prescribed or required for medical reasons: No Advance Directives: No Advance Directives Information Provided: No Do you have a plan to hurt others: No Plan service: No Current occupational status: disabled Physical Exam ED Vital Signs: Vital Signs - 24 hr 03/16/24 14:12 03/16/24 15:45 03/16/24 15:47 Temperature 97.8 F Pulse Rate 79 78 87 Respiratory Rate 14 Blood Pressure 166/65 H 170/73 H 171/74 H Pulse Oximetry 94 Oxygen Delivery Method Room Air 03/16/24 15:49 03/16/24 16:09 Temperature 98.2 F Pulse Rate 93 78 Respiratory Rate 20 Blood Pressure 172/74 H 165/73 H Pulse Oximetry 97 Oxygen Delivery Method Room Air BMI result Body Mass Index 35.9 Const General: healthy appearing, comfortable, no acute distress, alert and awake Nutritional Appearance: well nourished Orientation/consciousness: patient oriented x3 HENMT Head: Yes normocephalic and Yes atraumatic Ears: external ears normal, TM's normal bilaterally and EAC's normal Eyes Eyelids: Yes eyelids normal Conjunctivae: conjunctivae normal Sclerae: sclerae normal Corneas: corneas normal Pupils: Equal, round and reactive pupils present EOM: EOMs intact bilaterally Neck Neck: Yes full ROM Resp Effort & Inspection: normal respiratory effort, able to speak in complete sentences and not labored Cardio Rate: regular rate Rhythm: regular rhythm GI Inspection: No distended Skin General skin exam: no rashes or lesions noted and elasticity normal Neuro Other: Elda-Hallpike maneuver negative General: patient oriented x3 Cranial nerves: Yes CN's II-XII intact bilaterally, Yes Equal, round and reactive pupils present and Yes Bilaterally intact EOM present Cognition (Neuro): normal cognition Extrem Other: Moving all extremities well without any obvious deformities Course Reevaluation(s) Reevaluation #1: Patient reports that she feels much better after fluids and meclizine, patient will be discharged to follow up with the PCP, we will discharge her with as meclizine Time: 19:23 Medications Administered Discontinued Medications Generic Name Dose Route Start Last Admin Trade Name Gaby PRN Reason Stop Dose Admin Sodium Chloride 1,000 mls @ 999 mls/hr 03/16/24 15:00 03/16/24 16:53 Ns IV 03/16/24 16:00 Infused .Q1H1M ESTHER Infusion Meclizine HCl 50 mg 03/16/24 14:55 03/16/24 15:37 Meclizine Hcl 25 Mg Tablet PO 03/16/24 14:56 50 mg ONCE ONE Administration Medical Decision Making Medical Decision Making [facility] Narrative: 73-year-old female presents for evaluation of dizziness. Her vital signs are stable, plan for basic labs, EKG, orthostatics. The patient did have a CT scan of her brain from 3 months ago which was reviewed. The patient's symptoms are consistent with BPPV, her symptoms have been going on for 2 weeks at this time. Differential Diagnosis Differential Diagnoses: The differential diagnosis associated with the presentation includes Dizziness Orthostasis Benign paroxysmal positional vertigo Central vertigo less likely Lab Data [facility] Lab Attestation statement: I reviewed the patient's lab results. No leukocytosis or anemia. Normal platelet count. No electrolyte abnormalities. 03/16/24 14:36 03/16/24 14:36 Labs: Lab Results 03/16/24 Range/Units 14:36 WBC 7.4 (4.8-10.8) X10*3/uL RBC 4.90 (4.20-5.50) X10*6/uL Hgb 14.3 (12.0-16.0) g/dl Hct 42.8 (37.0-47.0) % MCV 87.3 (80.0-98.0) fL MCH 29.2 (27.0-33.0) pg MCHC 33.4 (31.0-35.0) g/dl RDW 14.6 (11.0-16.0) % Plt Count 375 (160-400) X10*3/uL MPV 8.6 L (9.4-12.3) fL Immature Gran % (Auto) 0.3 (0.0-0.4) % Neut % (Auto) 68.8 (45-73) % Lymph % (Auto) 22.2 (20-40) % Crawford % (Auto) 7.0 (2-11) % Eos % (Auto) 1.3 (0-4) % Baso % (Auto) 0.4 (0-2) % Lymph # (Auto) 1.7 (1.2-4.9) X10*3/uL Crawford # (Auto) 0.5 (0.1-1.2) X10*3/uL Eos # (Auto) 0.1 (0.0-0.4) X10*3/uL Baso # (Auto) 0.0 (0.0-0.2) X10*3/uL Abs Immat Gran (auto) 0.02 (0.00-0.03) X10*3/uL Absolute Neuts (auto) 5.1 (2.0-8.3) x10*3/uL Absolute Nucleated RBC 0.000 (0.0-0.012) X10*3/uL Nucleated RBC % (auto) 0.0 (0.0-0.2) /100WBC Sodium 144 (135-145) mmol/L Potassium 4.2 (3.3-5.1) mmol/L Chloride 107 (96-108) mmol/L Carbon Dioxide 30 H (22-29) mmol/L Anion Gap 11 L (12-20) BUN 11 (9-16) mg/dL Creatinine 0.81 (0.5-1.4) mg/dL Estim Creat Clear Calc 65.1 Estimated GFR > 60 Random Glucose 88 (60-115) mg/dL Calcium 9.7 (8.4-10.2) mg/dL Total Bilirubin 0.2 (0.0-1.0) mg/dL AST 18 (5-31) U/L ALT 19 (0-31) U/L Alkaline Phosphatase 130 H (39-117) U/L Total Protein 7.4 (6.5-8.0) g/dL Albumin 3.9 (3.5-5.0) g/dL Discharge Plan Discharge Clinical Impression: Dizziness Patient Disposition: Home, Self-Care Instructions: Benign Paroxysmal Positional Vertigo (ED) Additional Instructions: Take meclizine up to 3 times daily as needed for dizziness. Your workup in the ER today was reassuring Follow-up with your primary doctor Prescriptions: New meclizine 25 mg tablet 25 mg PO TID PRN (Reason: dizziness) Qty: 20 0RF No Action enoxaparin 40 mg/0.4 mL syringe 40 mg subcut Q24H 42 Days Qty: 16.8 0RF oxycodone 5 mg tablet 5 mg PO Q6H PRN (Reason: pain (scale score 4-6)) 7 Days Qty: 28 0RF Rx Instructions: Partial Fill upon patient request. buspirone 5 mg tablet 1 tab PO BID atorvastatin 20 mg tablet 1 tab PO BEDTIME sumatriptan succinate 25 mg tablet 1 tab PO QD-BID amitriptyline 10 mg tablet 1 tab PO BEDTIME amlodipine 10 mg tablet 1 tab PO DAILY acetaminophen 325 mg Tablet 650 mg PO Q6H PRN (Reason: Pain, Mild (Pain Scale 1-3)) 30 Days Qty: 240 0RF acetaminophen [Tylenol] 325 mg capsule 325 mg PO Q4H PRN (Reason: pain) Qty: 30 0RF zolpidem 12.5 mg tablet,ext release multiphase 12.5 mg PO BEDTIME PRN (Reason: Sleep) fluticasone propionate 50 mcg/actuation spray,suspension 1 spray intranasal DAILY albuterol sulfate [Ventolin HFA] 90 mcg/actuation HFA aerosol inhaler 2 puff inhalation Q4-6H PRN (Reason: Wheezing) pantoprazole 40 mg tablet,delayed release (DR/EC) 40 mg PO DAILY levothyroxine 137 mcg tablet 137 mcg PO DAILY celecoxib 200 mg capsule 200 mg PO BID oxybutynin chloride 5 mg tablet extended release 24hr 5 mg PO DAILY glipizide 5 mg tablet 5 mg PO BID duloxetine 30 mg capsule,delayed release(DR/EC) 30 mg PO DAILY Print Language: Georgian
[2024-03-16] MEDS: Meclizine HCl 25 MG TABLET 50 MG PO (15:37)
[2024-03-16 15:45] VITALS: BP 170/73; PULSE 78
[2024-03-16 15:47] VITALS: BP 171/74; PULSE 87
[2024-03-16 15:49] VITALS: BP 172/74; PULSE 93
[2024-03-16] MEDS: 0.9 % Sodium Chloride 1,000 ML 999 ML IV (15:52)
--- NOTE | 2024-03-16 15:54 | PC.NURSE ---
this nurse took over patient care at 1500, pt a&o, orthostats performed- pt c/o dizziness with change of position, ekg performed by tech and labs previously drawn, iv inserted, pt medicated and fluids started per order, neuro intact, will continue to monitor
[2024-03-16 16:09] VITALS: BP 165/73; PULSE 78; RESP 20; TEMP 36.8; O2SAT 97
[2024-03-16 19:32] VITALS: BP 151/65; PULSE 79; RESP 19; TEMP 36.9; O2SAT 95
== END 2024-03-16 19:46 | disposition home or self-care (01) ==
PROVIDERS: Emergency Provider Student in an Organized Health Care Education/Training Program
DX: R42 Dizziness and giddiness (principal); E11.9 Type 2 diabetes mellitus without complications; I10 Essential (primary) hypertension; E03.9 Hypothyroidism, unspecified; J45.909 Unspecified asthma, uncomplicated; F17.210 Nicotine dependence, cigarettes, uncomplicated; Z86.73 Personal history of transient ischemic attack (TIA), and cerebral infarction without residual deficits; Z79.02 Long term (current) use of antithrombotics/antiplatelets; Z79.899 Other long term (current) drug therapy
CPT/HCPCS: 36415; 80053; 85025; 93005; 96360; 99284; 99285

== ENCOUNTER 2024-04-04 08:01 | Outpatient (REF) | payer OTHER, SELFPAY ==
[2024-04-04 11:50] LABS: MANUAL DIFF FLAG NO
[2024-04-04 11:57] LABS: Basophils Percent Auto 0.4 % (0-2); Eosinophils Absolute Auto 0.2 X10*3/uL (0.0-0.4); Eosinophils Percent Auto 2.3 % (0-4); Hematocrit 39.8 % (37.0-47.0); Hemoglobin 13.2 g/dl (12.0-16.0); Imm Gran Abs Auto 0.02 X10*3/uL (0.00-0.03); Imm Gran Pct Auto 0.3 % (0.0-0.4); Lymphocytes Absolute Auto 2.3 X10*3/uL (1.2-4.9); Mean Corpuscular HGB Conc 33.2 g/dl (31.0-35.0); Mean Corpuscular Hemoglobin 29.1 pg (27.0-33.0); Mean Corpuscular Volume 87.9 fL (80.0-98.0); Mean Platelet Volume 9.1 fL (9.4-12.3); Monocytes Absolute Auto 0.6 X10*3/uL (0.1-1.2); Monocytes Percent Auto 9.1 % (2-11); Neutrophils Absolute Auto 3.7 x10*3/uL (2.0-8.3); Neutrophils Percent Auto 53.9 % (45-73); Platelet Count 398 X10*3/uL (160-400); Red Blood Count 4.53 X10*6/uL (4.20-5.50); Red Cell Distribution Width 14.2 % (11.0-16.0); White Blood Count 6.8 X10*3/uL (4.8-10.8)
[2024-04-04 12:25] LABS: Alanine Aminotransferase 15 U/L (0-31); Albumin Level 3.6 g/dL (3.5-5.0); Alkaline Phosphatase 114 U/L (39-117); Anion Gap 12 (12-20); Aspartate Amino Transferase 15 U/L (5-31); Bilirubin Total 0.3 mg/dL (0.0-1.0); Blood Urea Nitrogen 15 mg/dL (9-16); Carbon Dioxide 25 mmol/L (22-29); Chloride 107 mmol/L (96-108); Estimated Glomerular Filt Rate > 60; Glucose Random 95 mg/dL (60-115); Potassium 4.4 mmol/L (3.3-5.1); Sodium 140 mmol/L (135-145); Total Protein 6.5 g/dL (6.5-8.0)
[2024-04-04 12:32] LABS: Thyroid Stimulating Hormone 0.05 uIU/mL (0.32-4.0)
== END 2024-04-04 08:02 | disposition home or self-care (01) ==
LOC: HO.HHCL 08:01
PROVIDERS: Visit Provider Student in an Organized Health Care Education/Training Program
DX: R42 Dizziness and giddiness (principal); R20.0 Anesthesia of skin
CPT/HCPCS: 36415; 80053; 84439; 84443; 85025

== ENCOUNTER 2024-04-10 08:07 | Outpatient (REF) | payer OTHER, SELFPAY ==
[2024-04-10 12:04] LABS: Free T4 (Free Thyroxine) 1.46 ng/dL (0.71-1.85); Thyroid Stimulating Hormone 0.07 uIU/mL (0.32-4.0)
== END 2024-04-10 08:08 | disposition home or self-care (01) ==
LOC: HO.HHCL 08:07
PROVIDERS: Visit Provider Student in an Organized Health Care Education/Training Program
DX: E03.9 Hypothyroidism, unspecified (principal)
CPT/HCPCS: 36415; 84439; 84443

== ENCOUNTER 2024-04-15 15:35 | Outpatient (REF) | payer OTHER, SELFPAY ==
--- NOTE | ~2024-04-15 | MR_ITS ---
EXAMINATION: MR ANGIOGRAPHY BRAIN WITHOUT AND WITH CONTRAST CLINICAL INFORMATION: Vertigo. Blurred vision. Prior strokes. COMPARISON: None available. TECHNIQUE: 3-D [id number] without and following the IV contrast. Maximum intensity projections. Postcontrast images obtained following the IV contrast 8.5 cc gadolinium without reported immediate complications. FINDINGS: Anterior cerebral circulation: ICAs: Petrous, cavernous and supraclinoid segments are patent without focal stenosis or abrupt cut off nor intimal flap. MCA's: Normal patency without focal stenosis or abrupt cut off nor intimal flap. Bifurcation/trifurcation demonstrated no signal abnormality. YAZMIN: No flow signal gap or focal stenosis. Anterior communicant artery is patent. Ophthalmic arteries are patent. Posterior communicating arteries are patent and robust. Posterior cerebral circulation: V3/V4 segments are patent without focal stenosis or intimal flap. Right vertebral artery slightly dominant. Posterior inferior cerebellar arteries and anterior inferior cerebral arteries are patent. There is a right PICA -AICA. Superior cerebellar arteries are patent. paver: No focal stenosis or abrupt cut off. There is a 1.5 cm ovoid shaped signal abnormality within the right parotid compartment MR/MR angio head wo/w con IMPRESSION: No main cerebral artery occlusion or embolus or gross aneurysm 1.5 cm ovoid shaped lesion, right parotid compartment.. Electronically signed by: iVsh Torre MD 04/16/2024 02:12 PM EDT
[2024-04-15] MEDS: gadobutroL 10 ML VIAL IVPUSH (16:18)
== END 2024-04-15 15:36 | disposition home or self-care (01) ==
LOC: HO.MRI 15:35
PROVIDERS: Visit Provider Student in an Organized Health Care Education/Training Program
DX: R42 Dizziness and giddiness (principal); R20.0 Anesthesia of skin
CPT/HCPCS: 70546; A9585

== ENCOUNTER → 2024-04-15 15:48 | Outpatient (BNV) | payer OTHER, SELFPAY | PROVIDERS: Visit Provider Radiology Diagnostic Radiology | DX: H53.8 Other visual disturbances (principal); H81.399 Other peripheral vertigo, unspecified ear; Z86.73 Personal history of transient ischemic attack (TIA), and cerebral infarction without residual deficits | CPT/HCPCS: 70546 ==

== ENCOUNTER 2024-11-21 10:36 | Outpatient (REF) | payer OTHER, SELFPAY ==
--- OUTSIDE RECORDS SUMMARY | 2024-11-21 11:22 | XMS_ITS | Encounter Summary ---
Author Organization [facility] Address [address] [place] [address] [address] [place] [address] Care Team Providers Care Service Now Developer Name Role Phone Name, Darian HOLLIS Primary Care Provider [phone] Reason for Referral * Imaging (Routine) - Authorized Specialty Diagnoses / Procedures Referred By Contac t Referred To Contact Radiology Diagnoses Breast pain, left Procedures BI US Breast Limited Left Chema Mills MD [address] [place] [address] Phone: tel: fax: [address] Phone: tel: fax: Referral ID Status Reason Start Date Expiration Date V isits Requested Visits Authorized [id number] Authorized 11/21/2024 11/21/2025 1 1 * Imaging (Routine) - Closed Specialty Diagnoses / Procedures Referred By Contac t Referred To Contact Radiology Diagnoses Breast pain, left Procedures BI Mammogram Diagnostic Bilateral Chema Mills MD [address] [place] [address] Phone: tel: fax: [address] Phone: tel: fax: Referral ID Status Reason Start Date Expiration Date Visits Re quested Visits Authorized [id number] Closed 11/21/2024 11/21/2025 1 1 Reason for Visit * Reason Comments Breast Pain Encounter Details Date Type Department Care Team (Late st Contact Info) Description 11/21/2024 9:20 AM EDT Office Visit [facility] [address] [address] Breast pain, left (Primary Dx) Social History Tobacco Use Types Packs/Day Years Used Date Smoking Tobacco: Every Day Cigarettes Smokeless Tobacco: Never Alcohol Use Standard Drinks/Week Comments Never 0 (1 standard drink = 0.6 oz pur e alcohol) Alcohol Answer Date Recorded Frequency of Alcohol Consumption Not on file 12/06/2023 Average Number of Drinks Not on file 024 Frequency of Binge Drinking Not on file 11/18 Score 0 12/06/2023 Depression Answer Date Recorded Patient Health Questionnaire-9 Score 13 12/06/2023 Patient Health Questionnaire-9 Score 13 12/06/2023 Last PHQ-9: Questionnaire Data Not on file 0 12/06/2023 Housing Stability Answer Date Recorded What is your housing situation today? I have shakira marquez 12/06/[address] you li ve. Do you have problems with any of the following? None of the above 12/06/2023 Food Insecurity Answer Date Recorded Within the past 12 months, y ou worried that your food would run out before you got money to buy more: Never True 12/06/2023 Within the past 12 months,th e food you bought just didn't last and you didn't have enough money to get more: Never True Transportation Answer Date Recorded In the past 12 months, has l ack of transportation kept you from medical appts, meetings, work or from getting things needed for daily living? Yes, it has kept me from medical appointments or getting medications. 12/06/2023 Utilities Answer Date Recorded In the past 12 months, has t he electric, gas, oil or water company threatened to shut off services in your home? No 12/06/2023 Depression Answer Date Recorded Patient Health Questionnaire-2 Score 6 12/06/2023 Internet Access Answer Date Recorded Internet Access Q1 No 02/20/2024 Internet Access Q2 I do not want or need it 07/2023 Comments Unknown Sex and Gender Information Value Date Recorded Sex Assigned at Female 04/19/2022 10:40 AM EDT Legal Sex Female 10:40 AM EDT Gender Identity Female 04/19/2022 10:40 AM EDT Sexual Orientation Choose not to disclose 2021 10:40 AM EDT documented as of this encounter Last Filed Vital Signs Vital Sign Reading Time Taken Comments Blood Pressure 154/76 11/21/2024 9:35 AM EDT Pulse 105 11/21/2024 9:35 AM EDT Temperature 36.4 ??C (97.6 ??F) 11/21/2024 9:35 AM ED T Respiratory Rate 16 11/21/2024 9:35 AM EDT Oxygen Saturation - - Inhaled Oxygen Concentration - - Weight 89.3 kg (196 lb 12.8 oz) 11/21/2024 9:35 AM EDT Height 157.5 cm (5' 2 ) 11/21/2024 9:35 AM EDT Body Mass Index 36 11/21/2024 9:35 AM EDT documented in this encounter Plan of Treatment Scheduled Orders Name Type Priority Associated Diagnoses Orde r Schedule BI Mammogram Diagnostic Bilateral Imaging Routine Breast pain, left Expected: 11/21/2024, Expires: 01/21/2026 BI US Breast Limited Left Imaging Routine Breast pain, left Expected: 11/21/2024, Expires: 11/21/2025 documented as of this encounter Goals Goal Patient Goal Type Associated Problems Recent Progress Patient-Stated? Author Hemoglobin A1c < 7 Result Component 6.1( 1:54 PM EDT) No Puia, Ama, PharmD Record your blood sugar as directed Result Component No Puia, Ama, PharmD documented as of this encounter Visit Diagnoses Diagnosis Breast pain, left- Primary documented in this encounter Additional Health Concerns Assessment Noted Time PHQ-9 Depression Total Score: 13 18/2 024 1:06 PM EDT documented as of this encounter Care Teams Service Now Developer Relationship Specialty Start Date End Date Name, MD Darian [address] [place] [address] PCP - General Family Medicine 02/08/22 documented as of this encounter
[2024-11-21 13:48] LABS: Creatinine Urine 71.73 mg/dL; Microalbumin Urine < 5.0 mg/L
[2024-11-21 14:00] LABS: Free T4 (Free Thyroxine) 1.24 ng/dL (0.71-1.85)
[2024-11-21 14:36] LABS: Alanine Aminotransferase 19 U/L (0-31); Albumin Level 3.9 g/dL (3.5-5.0); Alkaline Phosphatase 139 U/L (39-117); Anion Gap 10 (12-20); Aspartate Amino Transferase 26 U/L (5-31); Bilirubin Total 0.2 mg/dL (0.0-1.0); Blood Urea Nitrogen 13 mg/dL (9-16); Calcium 9.3 mg/dL (8.4-10.2); Carbon Dioxide 29 mmol/L (22-29); Chloride 107 mmol/L (96-108); Cholesterol 135 mg/dL (<200); Estimated Glomerular Filt Rate > 60; Glucose Random 105 mg/dL (60-115); HDL Cholesterol 48 mg/dL (>40); LDL Cholesterol Calculated 58 mg/dL (<100); Potassium 3.9 mmol/L (3.3-5.1); Sodium 142 mmol/L (135-145); Thyroid Stimulating Hormone 0.24 uIU/mL (0.32-4.0); Total Protein 6.8 g/dL (6.5-8.0); Triglycerides 145 mg/dL (<150)
== END 2024-11-21 10:37 | disposition home or self-care (01) ==
LOC: HO.HHCL 10:36
PROVIDERS: Student in an Organized Health Care Education/Training Program; Visit Provider Internal Medicine Geriatric Medicine
DX: E03.9 Hypothyroidism, unspecified (principal); E11.40 Type 2 diabetes mellitus with diabetic neuropathy, unspecified; I10 Essential (primary) hypertension
CPT/HCPCS: 36415; 80053; 80061; 82570; 84439; 84443

== ENCOUNTER 2025-03-20 10:08 | Outpatient (REF) | payer OTHER, SELFPAY ==
--- NOTE | ~2025-03-20 | US_ITS ---
EXAMINATION: MM DIAGNOSTIC DIGITAL BREAST TOMOSYNTHESIS, BILATERAL Limited left breast ultrasound. CLINICAL INFORMATION: Patient had left breast palpable lump a few months ago patient does not feel the lump today. COMPARISON: Mammography: Comparison is made with relevant prior exams. TECHNIQUE: Digital breast mammography with tomosynthesis is performed in both the craniocaudal and mediolateral oblique views along with computer-aided detection (CAD). FINDINGS: There are scattered areas of fibroglandular density. Left marker clip. There are no significant masses, abnormal calcifications, or other abnormalities. Targeted color Doppler ultrasound scanning in the area the patient's previously felt palpable lump in the lateral left breast from 1-5 o'clock demonstrates normal fibronodular breast tissue. There is no sonographic abnormal finding. Results are provided to the patient at time of visit by the technologist. US/US Breast LT Limited Mamm Only IMPRESSION: Left: No mammographic or sonographic abnormal finding to account for the patient's previously felt left breast palpable lump. Recommend clinical evaluation follow-up. Right: Negative. ASSESSMENT: BI-RADS Category 1: Negative RECOMMENDATION: 1 year F/U This patient's information was entered into a reminder system with a target due date for their next mammogram. Electronically signed by: Jocelyne Clarke DO 03/20/2025 12:13 PM EDT
--- OUTSIDE RECORDS SUMMARY | 2025-03-20 11:22 | XMS_ITS | Encounter Summary ---
Author Organization [facility] [employer] Address [address] [facility] [address] [place] [address] Care Team Providers Care Operations Leader Name Role Phone NameDarian MD Primary Care Provider [phone] Ama Rodriguez PharmD Unavailable [phone] Reason for Visit * Reason Comments Med Refill Encounter Details Date Type Department Care Team ([facility] st Contact Info) Description 10/07/2022 Refill [facility] [address] [place] [address] NameDarian MD [address] [place] [address] Social History Tobacco Use Types Packs/Day Years Used Date Smoking Tobacco: Every Day Cigarettes Smokeless Tobacco: Never Alcohol Use Standard Drinks/Week Comments Never 0 (1 standard drink = 0.6 oz pur e alcohol) Depression Answer Date Recorded Patient Health Questionnaire-2 Score 0 08/24/2022 Comments Unknown Sex and Gender Information Value Date Recorded Sex Assigned at Female 04/19/2022 10:40 AM EDT Legal Sex Female 10:40 AM EDT Gender Identity Female 04/19/2022 10:40 AM EDT Sexual Orientation Choose not to disclose 2021 10:40 AM EDT documented as of this encounter Plan of Treatment Not on file documented as of this encounter Visit Diagnoses Not on filedocumented in this encounter Care Teams Operations Leader Relationship Specialty Start Date End Date NameDarian MD [address] [place] [address] [id number] PCP - General Family Medicine 02/08/22 Ama Rodriguez, PharmD [address] [place] [id number] Pharmacist Internal Medicine 03/03/23 08/31/23 documented as of this encounter
--- OUTSIDE RECORDS SUMMARY | 2025-03-20 11:22 | XMS_ITS | Encounter Summary ---
Author Organization [facility] [employer] Address [address] [facility] [address] [place] [address] Care Team Providers Care Flight Software Test Engineer Name Role Phone Name, Darian HOLLIS Primary Care Provider [phone] Reason for Visit * Reason Comments Med Refill Encounter Details Date Type Department Care Team ([facility] st Contact Info) Description 01/26/2024 Refill [facility] [address] [place], [place] [phone] Candice Obrien MD [address] [place] [address] Type 2 diabetes mellitus without complication, unspecified whether fci insulin use ([facility]) Social History Tobacco Use Types Packs/Day Years [...] the past 12 months, has t he [employer], gas, oil or water company threatened to shut off services in your home? No 12/06/2023 Depression Answer Date Recorded Patient Health Questionnaire-2 Score 6 12/06/2023 Comments Unknown Sex and Gender Information Value Date Recorded Sex Assigned at Female 04/19/2022 10:40 AM EDT Legal Sex Female 10:40 AM EDT Gender Identity Female 04/19/2022 10:40 AM EDT Sexual Orientation Choose not to disclose 2021 10:40 AM EDT documented as of this encounter Plan of Treatment Not on file documented as of this encounter Goals Goal Patient Goal Type Associated Problems Recent Progress Patient-Stated? Author Hemoglobin A1c < 7 Result Component 6.1( 5 1:54 PM EDT) No Puia, Ama, PharmD Record your blood sugar as directed Result Component No Anil Rodriguezyssa, PharmD documented as of this encounter Visit Diagnoses Diagnosis Type 2 diabetes mellitus without complication, unspecified whether fci insulin use documented in this encounter Additional Health Concerns Assessment Noted Time PHQ-9 Depression Total Score: 13 024 1:06 PM EDT documented as of this encounter Care Teams Flight Software Test Engineer Relationship Specialty Start Date End Date Name, MD Darian [address] [place] [address] PCP - General Family Medicine 02/08/22 documented as of this encounter
--- OUTSIDE RECORDS SUMMARY | 2025-03-20 11:22 | XMS_ITS | Encounter Summary ---
Author Organization [facility] [employer] Address [address] [place] [address] [address] [place] [address] Care Team Providers Care Plywood Layup Line Back Feeder Name Role Phone Name, Darian HOLLIS Primary Care Provider [phone] Ama Rodriguez PharmD Unavailable [phone] Encounter Details Date Type Department Care Team (Late st Contact Info) Description 05/28/2022 Abstract [facility] [address] [place] [address] Provider, MD Jarred Social History Tobacco Use Types Packs/Day Years Used Date Smoking Tobacco: Never Assessed Comments Unknown Sex and Gender Information Value [...] on filedocumented in this encounter Care Teams Plywood Layup Line Back Feeder Relationship Specialty Start Date End Date Name, MD Darian [address] [place] [address] PCP - General Family Medicine 02/08/22 Ama Rodriguez, PharmD [address] [place] [address] Pharmacist Internal Medicine 03/03/23 08/31/23 documented as of this encounter
--- OUTSIDE RECORDS SUMMARY | 2025-03-20 11:22 | XMS_ITS | Clinical Summary ---
Author Organization [employer] Address [address] [facility] [address] [place] [address] Care Team Providers Care Cook Vegetable Name Role Phone Name, Darian HOLLIS Primary Care Provider [phone] Allergies Active Allergy Reactions Criticality Noted Date Comments Amoxicillin-Pot Clavulanate Nausea And Vomiting 05/09/2013 Other reaction(s): vomiting Meloxicam 03/09/2017 Other reaction(s): chest pain, OTHER CHEST PAIN Pregabalin Itching 03/09/2017 Sulfa Antibiotics Hives 06/01/2022 Sulfamethoxazole 04/27/2022 Other reaction(s): Blister Sulfanilamide 03/09/2017 Other reaction(s): Hives/Urticaria Trimebutine 05/28/2022 Trimethoprim 04/27/2022 Other reaction(s): Blister Valsartan Rash Low 12/27/2013 Medications SUMAtriptan (Imitrex) 25 MG tablet take 1 tablet by oral route after onset of migraine; may repeat after 2 hours if headache returns,not to exceed 200mg in 24hrs 022 Active zolpidem CR (Ambien CR) 12.5 MG ER tablet Take 1 tablet by mouth at bedtime. Active busPIRone (Buspar) 5 MG tablet TAKE ONE HALF (0.5) TABLETS BY MOUTH TWICE A DAY 022 Active Acetaminophen 500 MG capsuleIndicati ons:Right knee pain, unspecified chronicity,Hist ory of total right knee replacement One capsule every 8 house as needed for pain 90 capsule 2 023 Active Blood Glucose Monitoring Suppl (ONE TOUCH ULTRA 2) w/Device kitIndications: Type 2 diabetes mellitus with diabetic neuropathy, without long-term current use of insulin ([facility]) Use to check blood sugar twice daily as directed 1 kit 023 Active etodolac (Lodine) 200 MG capsuleIndicati ons:Arthralgia of multiple sites, bilateral,Chron ic low back pain, unspecified back pain laterality, unspecified whether sciatica present TAKE 1 TABLET BY MOUTH TWICE DAILY 60 capsule 024 Active aspirin 81 MG EC tablet Take 81 mg by mouth Once per day. Active meclizine (Antivert) 25 MG tablet Take 1 tablet (25 mg) by mouth if needed in the morning, at noon, and at bedtime for dizziness. 30 tablet 2 024 Active Lancets (OneTouch Delica Plus [id number]) miscIndications :Type 2 diabetes mellitus with diabetic neuropathy, without long-term current use of insulin ([facility]) TEST BLOOD SUGAR TWICE DAILY DIRECTED 100 each 11 024 Active amLODIPine (Norvasc) 2.5 MG tabletIndicatio ns:Hypertension , unspecified type TAKE 1 TABLET BY MOUTH EVERY MORNING 30 tablet 11 024 Active cholecalciferol (Vitamin D-3) 25 MCG tablet TAKE 1 TABLET BY MOUTH EVERY MORNING 30 tablet 11 025 Active amitriptyline (Elavil) 10 MG tabletIndicatio ns:Type 2 diabetes mellitus without complication, unspecified whether superintendent terminal insulin use TAKE 1 TABLET BY MOUTH AT BEDTIME 30 tablet 3 025 Active fluticasone (Flonase) 50 MCG/ACT nasal spray INSTILL 1 SPRAY IN EACH NOSTRIL ONCE DAILY 16 g 3 025 Active albuterol (Ventolin HFA) 108 (90 Base) MCG/ACT inhaler INHALE 2 PUFFS BY MOUTH EVERY 4 TO 6 HOURS NEEDED 18 g 025 Active Trulicity 1.5 MG/0.5ML solution auto-injectorIn dications:Type 2 diabetes mellitus with diabetic neuropathy, without long-term current use of insulin ([facility]) INJECT ONE PEN (=1.5MG) SUBCUTANEOUSLY ONCE A WEEK DIRECTED 2 mL 11 025 Active levothyroxine (Synthroid) 100 MCG tablet Take 1 tablet (100 mcg) by mouth before breakfast. 30 tablet 11/21/2 025 2025 Active pantoprazole (ProtoNix) 40 MG EC tablet TAKE 1 TABLET BY MOUTH EVERY MORNING 90 tablet 1 025 Active atorvastatin (Lipitor) 20 MG tablet TAKE 1 TABLET BY MOUTH AT BEDTIME 90 tablet 1 025 Active lisinopril 10 MG tabletIndicatio ns:Essential hypertension TAKE 1 TABLET BY MOUTH EVERY MORNING 90 tablet 1 025 Active glucose blood (OneTouch Ultra Test) test stripIndication s:Type 2 diabetes mellitus with diabetic neuropathy, without long-term current use of insulin ([facility]) TEST BLOOD SUGAR TWICE DAILY DIRECTED 50 strip 11 025 Active DULoxetine (Cymbalta) [address] capsule TAKE 1 CAPSULE BY MOUTH EVERY MORNING 30 capsule 3 025 Active OneTouch Ultra Test test stripIndication s:Type 2 diabetes mellitus with diabetic neuropathy, without long-term current use of insulin ([facility]) TEST BLOOD SUGAR TWICE DAILY DIRECTED 50 strip 11 024 2024 Discontinued(R eorder (will not trigger notification to Pharmacy)) atorvastatin (Lipitor) 20 MG tablet TAKE 1 TABLET BY MOUTH AT BEDTIME 90 tablet 1 025 2024 Discontinued lisinopril 10 MG tabletIndicatio ns:Essential hypertension TAKE 1 TABLET BY MOUTH EVERY MORNING 90 tablet 1 025 2024 Discontinued DULoxetine (Cymbalta) [address] capsule TAKE 1 CAPSULE BY MOUTH EVERY MORNING 30 capsule 3 025 2024 Discontinued Active Problems Problem Noted Date Diagnosed Date Vertigo 04/04/2024 Assessment & Plan (04/04/2024 8:05 AM EDT): -CT head/Brain w/o Contrast 11/2023: No acute intracranial hemorrhage or edematous infarction with the caveat of limited evaluation due to motion. Age- indeterminate lacunar infarcts in the bilateral basal ganglia and right thalamus. If clinically indicated, consider further evaluation with an MR of the brain. Extensive chronic microangiopathy and generalized cerebral volume Loss Moderate multilevel cervical spondylosis with intervertebral disc height loss and facet/uncovertebral hypertrophy leading to various degrees of neural foraminal encroachment. Very prominent multilevel anterior osteophytes. There is no prevertebral soft tissue swelling. No acute cervical fractures or malalignment. Moderate cervical spondylosis. On exam today noted Vertigo caused when laying down no obvious nystagum Noted genralized wekaness in extremities but no focalizing findings on neuro exam CN all normal ,rapid alrernating movements normal , abnormal finger to nose exam [id number] 03/16/2024 6.2 Orthostatics significant change but no full criteria for it -per pt on ASA 81 mg daily taking OTC and takes statins -referred for brain MRA w wo contrast today -CBC,Chem TSH, T4 -f w PCP in 4 weeks -alarm signs and symptoms discussed w pt -ok to continue meclizine PRN -advised hydration -advised slow change in position -to use her RW -may need PT for vertigo but will have brain image first Low serum vitamin D 08/05/2023 Overview (08/05/2023): Vitamin D 25-OH Total >30 ng/mL 12.4 Low Cyst of breast 12/17/2022 Heart murmur 12/17/2022 History of total right knee replacement 08/25/19 23 Overview (08/24/2022): 05/26/2022 History of renal stone 08/24/2022 Aortic valve disorder 07/06/2022 Steatosis of liver 07/06/2022 Seasonal allergies 07/06/2022 Restless legs 07/06/2022 Migraine 07/06/2022 Low back pain 07/06/2022 Type 2 diabetes mellitus wit h neurologic complication, without long-term current use of insulin 06/01/2022 GERD (gastroesophageal reflux disease) 7 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 Tobacco user 12/29/2012 Overview (12/17/2022): RECORDED 12/29/2012 11:29AM BY TESSIE MO MA, ANNOTATION/ADDENDUM Exophthalmos 06/07/2012 Overview (12/17/2022): STORY: L ORBITAL DECOMPRESSION SURGERY WITH DR. BARRIGA IN 2009. DEVELOPED L SIDED FACIAL PAIN CONSISTENT WITH TRIGEMINAL NEURALGIA SECONDARY TO PROCEDURE.; IMPRESSION: FACIAL PAIN GRADUALLY IMPROVING, BUT STILL VERY BOTHERSOME AT TIMES. PT REQUESTS REFERRAL FOR SECOND OPINION WITH OPHTHALMOLOGICAL SURGEON. HAS NOT HAD ANY RELIEF WITH NUMEROUS RX'S TO TX HER PAIN, INCLUDING NEURONTIN AND PREDNISONE.; RECORDED 06/07/2012 10:08AM BY LETICIA CHAVIRA MA, ANNOTATION/ADDENDUM Hypertensive disorder 04/19/2012 Overview (12/17/2022): IMPRESSION: IS FEELING WELLL, BP IS STABLE CONTINUE MEDS; RECORDED 04/19/2012 12:55PM BY KATHY LEE, ANNOTATION/ADDENDUM Assessment & Plan (04/04/2024 8:05 AM EDT): Repeated BP 142/74 HR 94 checked w machine Home BP reported to be < 140/90 ,here elevated -advised to bring BP log to monitor BP f w RN n 2 weeks -blute team and to f w PCP ,possibly elevated BP is reactive but if high at home will need BP med adjustement Resolved Problems Problem Noted Date Diagnosed Date Resolved Date Abnormal glucose level 12/17/202208/05 Asthenia 12/17/2022 08/05/2023 Cholecystitis 12/17/2022 08/05/2023 Foot pain 12/17/2022 08/05/2023 Gastroduodenitis 12/17/2022 08/05/2023 Hypokalemia 12/17/2022 08/05/2023 Mononeuritis 12/17/2022 04/07/2023 Nonspecific syndrome suggest duyen of viral illness 12/17/2022 08/05/2023 Pain 12/17/2022 04/07/2023 Pneumonia 12/17/2022 12/17/2022 Shoulder pain 12/17/2022 04/07/2023 Social maladjustment 12/17/2022 024 Spasm of back muscles 12/17/20222023 Tibialis posterior tendinitis 12/17/2022 04/07/2023 Urinary tract infectious disease 12/17/2022 08/05/2023 Toxic diffuse goiter 07/06/2022 024 Joint pain 07/06/2022 08/05/2023 Insomnia 03/09/2017 08/05/2023 Pain in limb 05/08/2013 08/05/2023 Overview (12/17/2022): IMPRESSION: WILL CHECK LABS FOR K AND CALCIUM, PT IS ASKING TO SEE RHEUMATOLOGY AND SHE WILL CHIQUI AND AUBRIET, WONDERING AOBUT ARTHRITIS THE CAUSE; RECORDED 03/16/2012 2:38PM BY KATHY LEE, ANNOTATION/ADDENDUM IMPRESSION: HX OF TRIGENINAL NEURALGIA; RECORDED 12/27/2013 8:44AM BY TAMI ZAPATA MA, ANNOTATION/ADDENDUM IMPRESSION: HX OF TRIGENINAL NEURALGIA; RECORDED 05/08/2013 8:45AM BY TESSIE MO MA, ANNOTATION/ADDENDUM IMPRESSION: TRIAL OF FLEXERILA T NGHT TO SEE IF BENEFITS PT; RECORDED 05/08/2013 8:45AM BY TESSIE MO MA, ANNOTATION/ADDENDUM RECORDED 05/08/2013 8:45AM BY TESSIE MO MA, ANNOTATION/ADDENDUM Intestinal infectious disease 12/29/2012 08/05/2023 Overview (12/17/2022): 04/15/2009 CT sigmoid colon. RECORDED 12/29/2012 11:29AM BY TESSIE MO MA, ANNOTATION/ADDENDUM RECORDED 12/27/2013 8:44AM BY TAMI ZAPATA MA, ANNOTATION/ADDENDUM Cough 12/29/2012 08/05/2023 Overview (12/17/2022): IMPRESSION: CXR NEG. BUT WILL TX FOR PROBABLE SINUSITIS; RECORDED 12/27/2013 8:44AM BY TAMI ZAPATA MA, ANNOTATION/ADDENDUM IMPRESSION: EXSMOKER, SOUND SLIKE NEW INFECTION FOR 5 DAYS, IF NOT IMPROVED WITH COUGH MED PT TO TAKE ZPAK, DUE TO RECURRENT RESPIRATORY INFECITONS WILL GET CXR EVEN THOUGH COUGH RESOLVES FULLY DUE TO SMOKING HISTORY; RECORDED 12/29/2012 11:21AM BY TESSIE MO MA, ANNOTATION/ADDENDUM Acute upper respiratory infection 11/01/2012 08/05/2023 Overview (12/17/2022): IMPRESSION: MAIN SX IS COUGH WHICH IS KEEPING HER AWAKE.; RECORDED 11/01/2012 10:03AM BY DAYANNA DUMONT MA, ANNOTATION/ADDENDUM Non-organic sleep disorder 06/07/2012 1 Overview (12/17/2022): s/p fall 08/2015, [facility] normal brain CT RECORDED 06/07/2012 10:08AM BY LETICIA CHAVIRA MA, ANNOTATION/ADDENDUM Blood in urine 06/07/2012 08/05/2023 Overview (12/17/2022): IMPRESSION: COULD BE UTI OR RENAL STONE WILL TX AND GET CT OF ABDOMEN. NO FEVERS AND TOLERATING PO WELL; RECORDED 06/07/2012 10:08AM BY LETICIA CHAVIRA MA, ANNOTATION/ADDENDUM Chronic nonalcoholic liver disease 06/07/2012 08/05/2023 Overview (12/17/2022): RECORDED 06/07/2012 10:08AM BY LETICIA CHAVIRA MA, ANNOTATION/ADDENDUM Dysuria 06/07/2012 04/07/2023 Overview (12/17/2022): IMPRESSION: TX WITH CIPRO; RECORDED 06/07/2012 10:08AM BY LETICIA CHAVIRA MA, ANNOTATION/ADDENDUM Malaise and fatigue 06/07/2012 08/05/19 24 Overview (12/17/2022): IMPRESSION: PT SNORES, IS FATIGUED, QUESTION OF APNEA WILL GET SLEEP STUDY, USES AMBIEN; RECORDED 06/07/2012 10:08AM BY LETICIA CHAVIRA MA, ANNOTATION/ADDENDUM Diarrhea 04/19/2012 04/07/2023 Overview (12/17/2022): RECORDED 04/19/2012 12:54PM BY KATHY LEE, ANNOTATION/ADDENDUM Abdominal pain 03/16/2012 04/07/2023 Overview (12/17/2022): IMPRESSION: PT WITH 3 WEEKS OF ABDOMINAL PAINA DN BLOATING, HAS KNOWN FATTY LIVER, HAD CT ABD AND PELVIS 01/28 NO MASSES OR ASCITES, WILL IMAGE WITH US AND GET LABS; RECORDED 03/16/2012 2:38PM BY KATHY LEE, ANNOTATION/ADDENDUM Encounters Date Type Department Care Team Description 02/25/2025 Telephone [facility] [address] [place] [address] Name, MD Darian Chart Prep 02/24/2025 Refill [facility] [address] [place] [address] Name, MD Darian 02/19/2025 Refill [facility] [address] [place] [address] Name, MD Darian Type 2 diabetes mellitus with diabetic neuropathy, without long-term current use of insulin ([facility]) 02/17/2025 Refill [facility] [address] [place] [address] Name, MD Darian Essential hypertension; Type 2 diabetes mellitus with diabetic neuropathy, without long-term current use of insulin ([facility]) 12/27/2024 Refill [facility] [address] [place] [address] Name, MD Darian from Last 3 Months Immunizations Immunization Administration Dates Next Due Hep B, adult 10/18/2009,09/18/2009 Influenza High-dose Quadriva lent Preservative Free 04/21/2022 Influenza Quadrivalent Adjuvanted 06/16/2021 Influenza injectable quadriv alent preservative free 04/30/2016,02/19/2015 Influenza, IIV3, injectable 03/08/2013,1 ,04/06/2010,06/23 Influenza, seasonal, injecta ble, preservative free 05/03/2014 Influenza, seasonal, intrade rmal, preservative free 03/16/2012 Influenza, trivalent, adjuvanted 06/06/2018 Novel [id number], all formulations 06/23/2009 Pfizer Covid-19 Vaccine 12+ Bivalent 08/24/2022 Pneumococcal Conjugate PCV 13 06/06/2018, 018 Pneumococcal Polysaccharide PPSV23 04/21/2022 Tdap 06/06/2018,02/02/2018 Zoster, Recombinant 04/21/2022,02/02/2018 Social History Tobacco Use Types Packs/Day Years Used Date Smoking Tobacco: Every Day Cigarettes Smokeless Tobacco: Never Tobacco Cessation:Ready to Q uit: Not Asked; Counseling Given: Not Answered Alcohol Use Standard Drinks/Week Comments Never 0 [...] not to disclose 2021 10:40 AM EDT Last Filed Vital Signs Vital Sign Reading Time Taken Comments Blood Pressure 154/76 11/21/2024 9:35 AM EDT Pulse 105 11/21/2024 9:35 AM EDT Temperature 36.4 C (97.6 F) 11/21/2024 9:35 AM EDT Respiratory Rate 16 11/21/2024 9:35 AM EDT Oxygen Saturation 97% 04/03/2024 1:12 PM EDT Inhaled Oxygen Concentration - - Weight 89.3 kg (196 lb 12.8 oz) 11/21/2024 9:35 AM EDT Height 157.5 cm (5' 2 ) 11/21/2024 9:35 AM EDT Body Mass Index 36 11/21/2024 9:35 AM EDT Plan of Treatment Health Maintenance Due Date Last Done Comments CT Colonography 1951 FIT DNA/Cologuard 1951 FIT 1951 FOBT 1950 Sigmoidoscopy 1951 Diabetes: Foot Exam 11/23/1961 Eye Exam 11/23/1961 Alcohol/Substance Use Screening 1963 Hepatitis C Screening 11/23/1969 Hepatitis A Vaccines (1 of 2 - Risk 2-dose series) 11/23/1970 Hepatitis B Vaccines (3 of 3 - Risk 3-dose series) 03/20/2010 10/18/2009, 09/18/2009 RSV Patients and Patients Aged 60 years or older (1 - Risk 60-74 years 1-dose series) 2011 Colonoscopy 07/07/2023 07/07/2018 Colorectal Cancer Screening 07/07/2023 Mammogram 09/06/2023 09/05/2021, 03/22/2013 Depression Monitoring 06/06/2024 12/06/2023, 024 SDOH Screening 12/05/2024 12/06/2023 COVID-19 Vaccine ( season) 2025 08/24/2022, 06/16/2021, 10/13/2020, Additional history exists Influenza Vaccine (#1) 2025 , 06/16/2021, 06/06/2018, Additional history exists Diabetes: Hemoglobin A1C 04/12/2025 025, 03/16/2024, 08/05/2023, Additional history exists Diabetes: Urine Protein Screening 11/21/2025 11/21/2024, 12/17/2022 Lipid Panel 11/21/2025 11/21/2024, 12/01/2022 Tobacco Screening 11/21/2025 11/21/2024 DTaP/Tdap/Td Vaccines (3 - Td or Tdap) 06/06/2028 06/06/2018, 02/02/2018 Pneumococcal Vaccine: 50+ Years Completed 04/21/2022, 06/06/2018, 02/02/2018 Zoster Vaccines Completed 04/21/2022, 02/02/2018 HIB Vaccines Aged Out No longer eligi ble based on patient's age to complete this topic HPV Vaccines Aged Out No longer eligi ble based on patient's age to complete this topic IPV Vaccines Aged Out No longer eligi ble based on patient's age to complete this topic Meningococcal B Vaccine Aged Out No l onger eligible based on patient's age to complete this topic Meningococcal Vaccine Aged Out No caprice ondina eligible based on patient's age to complete this topic RSV under 20 months Aged Out No longe r eligible based on patient's age to complete this topic Rotavirus Vaccines Aged Out No longer eligible based on patient's age to complete this topic Goals Goal Patient Goal Type Associated Problems Recent Progress Patient-Stated? Author Hemoglobin A1c < 7 Result Component 6.1( 5 1:54 PM EDT) No Ama Rodriguez PharmD Record your blood sugar as directed Result Component No Ama Rodriguez PharmD Procedures Procedure Name Priority Date/Time Associated Diagnosis Comments ALBUMIN, RANDOM URINE W/CREATININE Routine 11/21/2024 10:39 AM EDT Type 2 diabetes mellitus with diabetic neuropathy, without long-term current use of insulin ([facility]) Hypertension, unspecified type LIPID PANEL, STANDARD Routine 11/21/2024 10:39 AM EDT Type 2 diabetes mellitus with diabetic neuropathy, without long-term current use of insulin ([facility]) Hypertension, unspecified type POCT GLYCATED HEMOGLOBIN, TOTAL Routine 10/11/2024 1:54 PM EDT Type 2 diabetes mellitus with diabetic neuropathy, without long-term current use of insulin ([facility]) MAMMOGRAPHY Routine 09/05/2021 COLONOSCOPY Routine 07/07/2018 from Last 3 Months or Most Recently Relevant to Health Maintenance Results * Albumin, Random Urine W/Creatinine (11/21/2024 10:39 AM EDT) Creatinine, Urine 71.73 mg/dL [facility] Microalbumin Urine <5.0 mg/L [facility] Microalbum Creatinine Ratio Ur TNP <30 ug/mg cr [facility] Comment:Unable to calculate albumin/creatinine ratio due to lowmicroalbumin or creatinine result. Urine (Urine, Random) 11/21/2024 10:39 AM EDT 11/21/2024 1:09 PM EDT us Darian Brar MD LAB URINE ORDERABLES Final Resul t Performing Organization Address [facility] de Phone Number [facility] [address] [place] [address] [phone] * Lipid Panel, Standard (11/21/2024 10:39 AM EDT) Triglycerides 145 <150 mg/dL [facility] Comment:Desirable Triglyceri de: less than 150 mg/dLBorderline High Triglyceride 150-199 mg/dLHigh Triglyceride: 200-499 mg/dLVery High Triglyceride: greater than or equal to 5OO mg/dL Cholesterol 135 <200 mg/dL [facility] Comment:Desirable Cholestero l: less than 200 mg/dLBorderline High Cholesterol: 200-239 mg/dLHigh Cholesterol: greater than 239 mg/dL LDL Cholesterol Calculated 58 <100 mg/dL [facility] Comment:Desirable LDL: less than 100 mg/dLNear Optimal/Above Optimal LDL: 110- 129 mg/dLBorderline High LDL: 130-159 mg/dLHigh LDL: 160-189 mg/dLVery High LDL: greater than or equal to 190 mg/dL HDL Cholesterol 48 >40 mg/dL [facility] Comment:Desirable HDL: great er than 40 mg/dL Note: This HDL assay may give artificially low results in patients with liver disease. Blood Venous blood specimen / Unknown 11/21/2024 10:39 AM EDT 11/21/2024 1:11 PM EDT us Darian Brar MD LAB BLOOD ORDERABLES Final Resul t Performing Organization Address City/[facility] Co de Phone Number [facility] [address] [place] [address] [phone] * (ABNORMAL) POCT HGB A1C (10/11/2024 1:54 PM EDT) Hemoglobin A1C 6.1(A) 4.0 - 6.0 % QC Media Lot # [id number] Lot# Expiration Date ,918 Blood 10/11/2024 1:54 PM EDT Darian Name MD POINT OF CARE TEST ENTER/EDIT OR DERABLES Final Result * Mammography (09/05/2021) Mammogram Perfom Anatomical Region Laterality Modality Other Historical Provider MD HEALTH MAINTENANCE Final Result * (ABNORMAL) Colonoscopy (07/07/2018) Colonoscopy Abnormal(A ) Normal [facility] External Provider HEALTH MAINTENANCE Final Result from Last 3 Months or Most Recently Relevant to Health Maintenance Insurance [facility] [employer] [employer] (O D-SNP) NITIN FRANCIS [id number] Care Teams Cook Vegetable Relationship Specialty Start Date End Date Name, MD Darian [address] [place] [phone] PCP - General Family Medicine 02/08/22
--- OUTSIDE RECORDS SUMMARY | 2025-03-20 11:22 | XMS_ITS | Encounter Summary ---
Author Organization [employer] Address [address] [facility] [address] [place] [address] Care Team Providers Care Air Route Controller Name Role Phone Name, Darian HOLLIS Primary Care Provider [phone] Ama Rodriguez PharmD Unavailable [phone] Reason for Visit * Reason Comments Med Refill Encounter Details Date Type Department Care Team ([facility] st Contact Info) Description 05/15/2023 Refill [facility] [address] [place], [place] [phone] Name, MD Darian [address] [place], [place] [phone] Hypertension, unspecified type Social History Tobacco Use Types Packs/Day Years Used Date Smoking Tobacco: Every Day Cigarettes Smokeless Tobacco: Never Alcohol Use Standard Drinks/Week Comments Never 0 (1 standard drink = 0.6 oz pur e alcohol) Housing Stability Answer Date Recorded What is your housing situation today? I have shakira marquez 04/07/[address] you li ve. Do you have problems with any of the following? None of the above 04/07/2023 Food Insecurity Answer Date Recorded Within the past 12 months, y ou worried that your food would run out before you got money to buy more: Never True 04/07/2023 Within the past 12 months,th e food you bought just didn't last and you didn't have enough money to get more: Never True Transportation Answer Date Recorded In the past 12 months, has l ack of transportation kept you from medical appts, meetings, work or from getting things needed for daily living? No 04/07/2023 Utilities Answer Date Recorded In the past 12 months, has t he electric, gas, oil or water company threatened to shut off services in your home? No 04/07/2023 Depression Answer Date Recorded Patient Health Questionnaire-2 [...] Result Component 6.1( 1:54 PM EDT) No PuiaAnilAma, PharmD Record your blood sugar as directed Result Component No Puia, Ama, PharmD documented as of this encounter Visit Diagnoses Diagnosis Hypertension, unspecified type documented in this encounter Care Teams Air Route Controller Relationship Specialty Start Date End Date Name, MD Darian [address] [place] [address] PCP - General Family Medicine 02/08/22 Ama Rodriguez, PharmD [address] [place] [address] Pharmacist Internal Medicine 03/03/23 08/31/23 documented as of this encounter
--- OUTSIDE RECORDS SUMMARY | 2025-03-20 11:22 | XMS_ITS | Encounter Summary ---
Author Organization [employer] Address [address] [facility] [address] [place] [address] Care Team Providers Care Supervisor Microbiology Technologists Name Role Phone Name, Darian HOLLIS Primary Care Provider [phone] Ama Rodriguez PharmD Unavailable [phone] Encounter Details Date Type Department Care Team (Late st Contact Info) Description 06/02/2022 Telephone [facility] [address] [place] [address] Name, MD Darian [address] [place] [phone] Social History Tobacco Use Types Packs/Day Years [...] on filedocumented in this encounter Care Teams Supervisor Microbiology Technologists Relationship Specialty Start Date End Date Name, MD Darian [address] [place] [address] [phone] PCP - General Family Medicine 02/08/22 Ama Rodriguez, PharmD [address] [place] [phone] Pharmacist Internal Medicine 03/03/23 08/31/23 documented as of this encounter
--- OUTSIDE RECORDS SUMMARY | 2025-03-20 11:22 | XMS_ITS | Clinical Summary ---
Author Organization [facility] ity Address [address] [place] [address] Care Team Providers Care Partner Management Consultant Name Role Phone Vivi Young MD Primary Care Provider Social History Tobacco Use Types Packs/Day Years Used Date Smoking Tobacco: Never Assessed Comments Unknown Sex and Gender Information Value Date Recorded Sex Assigned at Not on file Legal Sex Female 2:56 AM EST Gender Identity Not on file Sexual Orientation Not on file Plan of Treatment Health Maintenance Due Date Last Done Comments Breast Cancer Screening 1950 Diabetes: Annual GFR (Glomerular Filtration Rate) 1950 Diabetes: Annual Foot Exam 11/23/1961 Diabetes: Annual Retina Eye Exam 11/23/1961 DTaP,Tdap,and Td Vaccines (1 - Tdap) 11/23/1970 Pneumococcal Vaccine: 50+ Years (1 of 1 - PCV) 11/23/2001 Zoster Vaccines (1 of 2) 11/23/2001 Hepatitis B Vaccines (3 of 3 - 19+ 3-dose series) 03/20/2010 10/18/2009, 09/18/2009 Depression Screening 06/20/2024 Cholesterol Screening (Lipid Panel) 11/22/2024 Diabetes: Annual Urine Albumin-Creatinine Ratio (uACR) 11/22/2024 Diabetes: Blood Sugar Contro l Test (HGBA1C) 11/22/2024 Falls Risk Assessment 11/22/2024 Hepatitis C Screening 11/22/2024 Hypertension/CHF/CAD Annual BMP Blood Test 11/22/2024 Osteoporosis Screening (Bone Density Screening) 11/22/2024 Social Influencers of Health Screening 11/22/2024 COVID-19 Vaccine (1 - 2023-2 5 season) 2025 Influenza Vaccine (#1) 2025 04/30/2016 Colorectal Cancer Screening: Colonoscopy 02/25/2025 02/25/2015 RSV Immunization Adult Patients (1 - 1-dose 75+ series) 11/23/2026 HIB Vaccines Aged Out No longer eligi ble based on patient's age to complete this topic HPV Vaccines Aged Out No longer eligi ble based on patient's age to complete this topic Hepatitis A Vaccines Aged Out No long er eligible based on patient's age to complete this topic IPV Vaccines Aged Out No longer eligi ble based on patient's age to complete this topic MMR Vaccines Aged Out No longer eligi ble based on patient's age to complete this topic Meningococcal ACWY Vaccine Aged Out N o longer eligible based on patient's age to complete this topic Meningococcal B Vaccine Aged Out No l onger eligible based on patient's age to complete this topic RSV Immunization Patients Under 20 months Aged Out No longer eligible b ased on patient's age to complete this topic Varicella Vaccines Aged Out No longer eligible based on patient's age to complete this topic Procedures Procedure Name Priority Date/Time Associated Diagnosis Comments EXTERNAL COLONOSCOPY REPORT Routine 02/25/2015 9:54 AM EDT from Last 3 Months or Most Recently Relevant to Health Maintenance Results * External Colonoscopy Report (02/25/2015 9:54 AM EDT) Anatomical Region Laterality Modality Endoscopy us Historical Provider GI~PROCEDURE ORDERABLES F inal Result from Last 3 Months or Most Recently Relevant to Health Maintenance Care Teams Partner Management Consultant Relationship Specialty Start Date End Date Vivi Young MD [address] [place] [address] PCP - General Internal Medicine 02/01/18
--- OUTSIDE RECORDS SUMMARY | 2025-03-20 11:22 | XMS_ITS | Encounter Summary ---
Author Organization [employer] Address [address] [facility] [address] [place] [address] Care Team Providers Care Bake Room Worker Name Role Phone Name, Darian HOLLIS Primary Care Provider [phone] Reason for Visit * Reason Onset Date Comments ER Follow-up 2023 Encounter Details Date Type Department Care Team ([facility] st Contact Info) Description 2023 Telephone [facility] MEDICINE [address] [place], [place] [id number] Name, MD Darian [address] [place] [address] ER Follow-up Social History Tobacco Use Types Packs/Day Years [...] AM EDT documented as of this encounter Miscellaneous Notes * Telephone Encounter - Wendi Cody RN - 2023 3:11 PM EDT T/C to pt. Through [employer] id - [id number] for below message , pt. States she is doing well,pt. Denies for ED follow up states she already has apt. On 12/06/2023. Pt. Also advise to give callto [facility] if any questions or concerns. Pt. Verbally agreed and understood. * Telephone Encounter - Alison Garcia - 2023 9:49 AM EDT Patient calling to report ED visit on : Date: 11/22 [place] [facility] [place]: [place] Patient advised will forward to team nurse for follow up Please contact pt at [phone] documented in this encounter Plan of Treatment Not on [...] on filedocumented in this encounter Care Teams Bake Room Worker Relationship Specialty Start Date End Date Name, MD Darian [address] [place] [id number] PCP - General Family Medicine 02/08/22 documented as of this encounter
--- OUTSIDE RECORDS SUMMARY | 2025-03-20 11:22 | XMS_ITS | Encounter Summary ---
Author Organization [employer] Address [address] [facility] [address] [place] [address] Care Team Providers Care Hand Tool Filer Name Role Phone NameDarian MD Primary Care Provider [phone] Ama Rodriguez PharmD Unavailable [phone] Reason for Visit * Reason Onset Date Comments R/S APPT 06/28/2022 Encounter Details Date Type Department Care Team (Late st Contact Info) Description 06/28/2022 Telephone [facility] MED[facility]INE [address] [place] [address] Name, MD Darian [address] [place] [address] R/S APPT Social History Tobacco Use Types Packs/Day Years [...] encounter Miscellaneous Notes * Telephone Encounter - Iveth Solorzano - 06/28/2022 9:50 AM EST Tc from pt documented in this encounter Plan of Treatment Not on file documented as of this encounter Visit Diagnoses Not on filedocumented in this encounter Care Teams Hand Tool Filer Relationship Specialty Start Date End Date NameDarian MD [address] [place] [address] PCP - General Family Medicine 02/08/22 Ama Rodriguez PharmD [address] [place] [address] Pharmacist Internal Medicine 03/03/23 08/31/23 documented as of this encounter
== END 2025-03-20 10:09 | disposition home or self-care (01) ==
LOC: HO.MAMMO 10:08
PROVIDERS: PCP Internal Medicine Geriatric Medicine; Visit Provider Emergency Medicine
DX: N64.4 Mastodynia (principal)
CPT/HCPCS: 76642; 77062; 77066

== ENCOUNTER → 2025-03-20 11:00 | Outpatient (BNV) | payer OTHER, SELFPAY | PROVIDERS: PCP Internal Medicine Geriatric Medicine; Visit Provider Internal Medicine | DX: N64.4 Mastodynia (principal) | CPT/HCPCS: 76642; 77066; G0279 ==

== ENCOUNTER 2025-05-30 12:05 | Outpatient (REF) | payer OTHER, SELFPAY ==
--- NOTE | ~2025-05-30 | XR_ITS ---
EXAMINATION: X-ray bilateral knees CLINICAL INFORMATION: Chronic bilateral knee pain. COMPARISON: X-ray left knee 11/23/2023. X-ray right knee 05/26/2022 TECHNIQUE: AP bilateral knees 2 views. Right knee 1 view. Left knee 1 view.. FINDINGS: Right knee: Right total knee arthroplasty in expected position alignment. Hardware is intact. No suspicious perihardware lucency. No evidence of acute fracture. Small suprapatellar joint fluid. Left knee: No acute fracture or dislocation. Femoral-tibial joint space is preserved. Limited evaluation of patellofemoral joint space. No significant effusion. XR/XR Knee Deon 3V IMPRESSION: Right knee: Total knee arthroplasty is intact. No hardware complications. Left knee: No acute findings. Electronically signed by: Lawson Urbina MD 05/30/2025 01:41 PM [facility] CULLEN
== END 2025-05-30 12:06 | disposition home or self-care (01) ==
LOC: HO.HHCX 12:05
PROVIDERS: PCP Internal Medicine Geriatric Medicine; Visit Provider Internal Medicine Geriatric Medicine
DX: M17.0 Bilateral primary osteoarthritis of knee (principal); M25.561 Pain in right knee; M25.562 Pain in left knee; G89.29 Other chronic pain
CPT/HCPCS: 73562

== ENCOUNTER → 2025-05-30 12:30 | Outpatient (BNV) | payer OTHER, SELFPAY | PROVIDERS: PCP Internal Medicine Geriatric Medicine; Visit Provider Radiology Diagnostic Ultrasound | DX: M25.561 Pain in right knee (principal); M25.562 Pain in left knee; Z96.651 Presence of right artificial knee joint | CPT/HCPCS: 73562 ==